=== PATIENT | female | born 1980 | race Caucasian/White ===

== ENCOUNTER 2017-04-17 23:05 | Emergency (ER) | payer BC, MEDICAID ==
[2017-04-18 00:11] LABS: BASO % 0.2 % (0-6); EOS % 3.2 % (0-6); GRAN % 60.7 % (47-80); HEMATOCRIT 40.9 % (35.0-47.0); HEMOGLOBIN 13.7 gm/dl (11.6-16.0); LYMPH % 29.3 % (16-45); MEAN CELL VOLUME 86.5 fl (81-97); MEAN CORPUSCULAR HGB CONC 33.5 g/dl (32-36); MEAN PLATELET VOLUME 10.7 fl (7.4-10.4); MONO % 6.6 % (0-9); PLATELET COUNT 357 K/uL (130-400); RED BLOOD COUNT 4.73 M/uL (3.80-5.40); RED CELL DISTRIBUTION WIDTH 13.4 % (11.5-14.5); WHITE BLOOD COUNT W/O DIFF 12.8 K/uL (4.2-12.2)
[2017-04-18] MEDS ORDERED: MORPHINE SULFATE 5 MG/ML PFS IVP ONE ×2 (00:16→02:05)
[2017-04-18] MEDS ORDERED: ONDANSETRON HCL IV 4 MG/2 ML VIAL IVP ONE (00:17)
--- NOTE | 2017-04-18 00:21 | Emergency Department Record ---
History of Present Illness - General Chief Complaint: Abdominal Pain Stated Complaint: LOWER ABDOMEN PAIN Time Seen by Provider: 04/17/17 23:22 Source: Patient Mode of Arrival: Ambulatory Limitations: No limitations - History of Present Illness Initial Comments: 37 yo female presents to ED with a CC of LLQ pain that began approximately 4-5 hours prior to arrival. Patient denies change in stools, nausea, vomiting, or blood in the stools. Patient does report a previous history of kidney stones, denies flank pain or urinary symptoms. Patient also reports a history of diverticulitis. Patient reports a previous history of ovarian cysts and Bipolar. MD Complaint: Abdominal pain Onset/Timin -: Hour(s) Location: LLQ Radiation: None Severity: Moderate Quality: Sharp, Stabbing Consistency: Constant Improves With: Nothing Worsens With: Movement Associated Symptoms: Denies other symptoms - Related Data LMP Date: 03/29/17 Previous Rx's Medication Instructions Recorded Ciprofloxacin HCl [Cipro] 500 mg PO Q12HR #19 tablet 04/18/17 Hydrocodone/Acetaminophen [[place] 1 each PO Q6H PRN #10 tablet 04/18/17 5-325 Tablet] Metronidazole [Flagyl] 500 mg PO TID #29 tablet 04/18/17 Allergies Allergy/AdvReac Type Severity Reaction Status Date / Time quetiapine [From Seroquel] AdvReac psychosis Verified 04/17/17 23:50 Travel Screening - Travel/Exposure Within Last 30 Days Have you traveled within the last 30 days?: No - Travel Symptoms Symptom Screening: None Review of Systems Constitutional: Denies: Chills, Fever, Malaise, Night sweats Eyes: Denies: Eye discharge, Eye pain ENT: Denies: Congestion, Ear pain, Epistaxis Respiratory: Denies: Cough, Dyspnea Cardiovascular: Denies: Chest pain, Dyspnea on exertion Endocrine: Denies: Fatigue, Heat or cold intolerance Gastrointestinal: Reports: Abdominal pain, Nausea. Denies: Constipation, Vomiting Genitourinary: Denies: Dysuria, Frequency Musculoskeletal: Denies: Arthralgia, Back pain, Gout, Joint swelling Skin: Denies: Bruising, Change in color Neurological: Denies: Abnormal gait, Confusion, Headache, Seizure Psychiatric: Denies: Anxiety Hematological/Lymphatic: Denies: Anemia, Blood Clots Past Medical History - SOCIAL HISTORY Smoking Status: Former smoker - RESPIRATORY Hx Respiratory Disorders: Yes Hx Pulmonary Embolism: Yes - CARDIOVASCULAR Hx Cardio Disorders: Yes Hx Deep Vein Thrombosis: Yes Comment:: PE 2003 - NEURO Hx Neuro Disorders: No - GI Hx GI Disorders: Yes Hx Diverticulitis: Yes - Hx Genitourinary Disorders: Yes Hx UTI: Yes - ENDOCRINE Hx Endocrine Disorders: No - MUSCULOSKELETAL Hx Musculoskeletal Disorders: Yes Hx Arthritis: Yes - PSYCH Hx Psych Problems: Yes Hx Anxiety: Yes Hx Depression: Yes Comment:: ADHD, bipolar manic - HEMATOLOGY/ONCOLOGY Hx Hematology/Oncology Disorders: Yes Hx Clotting Problems: Yes (hx of blood clots in L leg) Family Medical History Any Significant Family History?: Yes Hx Cancer: Father, Mother, Grandparents Hx Diabetes: Father, Mother, Grandparents Hx HTN: Father, Mother, Grandparents Physical Exam - General General Appearance: Alert, Oriented x3, Cooperative, Moderate distress Limitations: No limitations - Head Head exam: Atraumatic, Normocephalic, Normal inspection Head exam detail: negative: Abrasion, Contusion, Ta's sign, General tenderness, Hematoma, Laceration - Eye Eye exam: Normal appearance. negative: Conjunctival injection, Periorbital swelling, Periorbital tenderness, Scleral icterus - ENT Ear exam: negative: Auricular hematoma, Auricular trauma Nasal Exam: negative: Active bleeding, Discharge, Dried blood, Foreign body Mouth exam: negative: Drooling, Laceration, Muffled voice, Tongue elevation - Neck Neck exam: Normal inspection. negative: Meningismus, Tenderness - Respiratory Respiratory exam: Normal lung sounds bilaterally. negative: Rales, Respiratory distress, Rhonchi, Stridor - Cardiovascular Cardiovascular Exam: Regular rate, Normal rhythm, Normal heart sounds - GI/Abdominal GI/Abdominal exam: Soft, Tenderness, Other (TTP to the LLQ with guarding present , no peritoneal signs, no rebound.). negative: Rebound, Rigid - Rectal Rectal exam: Deferred - exam: Deferred - Extremities Extremities exam: negative: Calf tenderness, Pedal edema, Tenderness - Back Back exam: Denies: CVA tenderness (R), CVA tenderness (L) - Neurological Neurological exam: Alert, Normal gait, Oriented X3 - Psychiatric Psychiatric exam: Normal affect, Normal mood - Skin Skin exam: Normal color. negative: Abrasion Type of lesion: negative: abrasion Course Vital Signs 04/17/17 23:52 Temperature 98.1 F Pulse Rate [ 120 H Pulse Ox Probe] Respiratory 32 H Rate Blood Pressure 145/113 [Right Arm] Pulse Ox 97 - Reevaluation(s) Reevaluation #1: 04/18/17 00:45 Labs reviewed, WBC 12.8, labs are otherwise grossly unremarkable for an acute process. Patient is going to CT currently. Reevaluation #2: 04/18/17 02:03 CT Abdomen and Pelvis: Mild sigmoid diverticulitis Patient was updated on all results, Cipro and Flagyl initiated in the ED. Patient appears stable for discharge at this time. Medical Decision Making - Lab Data Result diagrams: 04/18/17 00:02 04/18/17 00:02 Disposition Disposition: Discharge Clinical Impression: Sigmoid diverticulitis Disposition: Home, Self-Care Condition: (2) Stable Instructions: Diverticulitis (ED) Additional Instructions: Return to ED if your symptoms worsen or if you have any concerns. Flagyl, Cipro, and Whipple as directed. Follow-up with your family doctor in 2-3 days as directed. Prescriptions: Ciprofloxacin HCl [Cipro] 500 mg PO Q12HR #19 tablet Hydrocodone/Acetaminophen [[place]ipple 5-325 Tablet] 1 each PO Q6H PRN #10 tablet PRN Reason: Pain - Moderate (5-7) Metronidazole [Flagyl] 500 mg PO TID #29 tablet Forms: Patient Portal Access Time of Disposition: 02:01 Quality - Quality Measures Quality Measures: N/A - Blood Pressure Screening Does Patient Have Any of the Following: No Blood Pressure Classification: Hypertensive Reading Systolic Measurement: 151 Diastolic Measurement: 104 Screening for High Blood Pressure: < First Hypertensive BP, F/U Documented > [ G8950] First Hypertensive Follow-up Interventions: Referral to alternative/primary care provider.
[2017-04-18 00:23] LABS: URINE APPEARANCE CLEAR; URINE BILIRUBIN NEGATIVE (NEGATIVE); URINE BLOOD NEGATIVE (NEGATIVE); URINE COLOR YELLOW; URINE GLUCOSE (UA) NEGATIVE (NEGATIVE); URINE KETONE NEGATIVE (NEGATIVE); URINE LEUKOCYTE ESTERASE NEGATIVE (NEGATIVE); URINE NITRITE NEGATIVE (NEGATIVE); URINE PROTEIN NEGATIVE (NEGATIVE); URINE UROBILINOGEN 0.2 E.U./dL (0.20 - 1.00)
[2017-04-18 00:28] LABS: HCG,QUALITATIVE URINE NEGATIVE (NEGATIVE)
[2017-04-18] MEDS ORDERED: 0.9 % SODIUM CHLORIDE 1000ML 1,000 ML IV SCH (00:30)
[2017-04-18 00:35] LABS: ALB/GLOB RATIO 1.4 (1.1-1.8); ALBUMIN 4.1 g/dL (4.0-5.0); ALKALINE PHOSPHATASE 63 U/L (35-104); ALT/SGPT 12 U/L (<33); AST/SGOT 14 U/L (10.0-35.0); BLOOD UREA NITROGEN 8 mg/dL (6-20); CREATININE 0.7 mg/dL (0.5-0.9); EST GLOMERULAR FILTRATION RATE > 60 mL/min; GLUCOSE,RANDOM 109 mg/dL (74-109); LIPASE 29 U/L (13-60)
[2017-04-18] MEDS ORDERED: CIPROFLOXACIN HCL 500 MG TABLET PO ONE (02:00)
[2017-04-18] MEDS ORDERED: METRONIDAZOLE 250 MG TABLET PO ONE (02:00)
--- NOTE | 2017-04-19 15:57 | CT SCAN REPORT ---
DATE: 04/18/2017 at 1:05 a.m. EXAM: CT SCAN OF THE ABDOMEN AND PELVIS WITH CONTRAST. HISTORY: Left lower quadrant abdominal pain. TECHNIQUE: Standard CT imaging of the abdomen and pelvis was performed with intravenous contrast. A total of 85 mL of Omnipaque 300 was administered. COMPARISON: None. FINDINGS: The lung bases are clear. There are minor areas of fatty infiltration within the liver. The gallbladder, biliary tree, pancreas, spleen , and adrenal glands are normal. A 3.0 mm nonobstructing stone is present within the mid portion of the right kidney. The kidneys and ureters are otherwise normal. The aorta is normal in caliber. There is no retroperitoneal lymphadenopathy. There are scattered diverticula within the sigmoid colon. There is minor inflammatory change within the proximal to mid sigmoid colon region consistent with minor, acute diverticulitis. There is no associated abscess or pneumoperitoneum. There is a small amount of free fluid within the posterior cul de sac. The uterus and adnexa appear normal. There are no acute osseus abnormalities. IMPRESSION: 1. MILD, ACUTE SIGMOID DIVERTICULITIS WITH NO EVIDENCE FOR ABSCESS OR PNEUMOPERITONEUM. 2. TRACE FREE FLUID WITHIN THE POSTERIOR CUL DE SAC WHICH IS LIKELY PHYSIOLOGIC. 3. A 3.0 MM NONOBSTRUCTING STONE WITHIN THE RIGHT KIDNEY. JOB NUMBER: [id number] MTDD
== END 2017-04-18 02:50 | disposition home or self-care (01) ==
LOC: ER 23:05
DX: K57.32 Diverticulitis of large intestine without perforation or abscess without bleeding (principal)
CPT/HCPCS: 99284 ×2; 96376; 96374; 96375; 83690; 85025; 80053; 81003; 81025; 74177; Q9967; J2405; J2270; J7030

== ENCOUNTER 2018-01-26 09:00 | Emergency (ER) | payer BC, MEDICAID ==
[2018-01-26] MEDS ORDERED: KETOROLAC 30 MG/ML VIAL IVP ONE (09:10)
--- NOTE | 2018-01-26 09:15 | Emergency Department Record ---
History of Present Illness - General Stated complaint: ABD PAIN Time Seen by Provider: 01/26/18 09:09 Source: Patient Mode of Arrival: Ambulatory Limitations: No limitations - History of Present Illness Initial comments: 37 yo female presents with lower pelvic pain for 20 days with vaginal bleeding. She passed odd looking clots. She has had a prior tubal ligation. She did not perform a test. No fevers, chills, vomiting, dysuria or diarrhea. No hematuria. She reports a history of ovarian cysts in the past. She has had 2 live births and 2 miscarriages. PCP is Stephanie Kline. She was not able to get an appointment until February 02. She does not see a [employer]. The pain is bilateral but worse on the right. Her vaginal discharge is white for the 20 days. MD Complaint: Pelvic pain, Vaginal bleeding -: Days(s) (20) Location: Suprapubic Radiation: LLQ, RLQ Severity: Moderate Quality: Aching, Cramping Consistency: Constant Improves with: None Worsens with: None Patient : No (History of tubal ligation, ) Associated Symptoms: Abdominal pain, Vaginal bleeding, Vaginal discharge - Related Data Home Medications Medication Instructions Recorded Confirmed Last Taken Diphenhydramine HCl [Benadryl] 100 mg PO QHS 01/26/18 01/26/18 1 Day Ago ~01/25/18 Lisdexamfetamine Dimesylate 40 mg PO DAILY 01/26/18 01/26/18 1 Day Ago [Vyvanse] ~01/25/18 Previous Rx's Medication Instructions Recorded Hydrocodone/APAP 5/325Mg [[place] 1 each PO Q6H #8 tab 01/26/18 5Mg/325Mg] Metronidazole [Flagyl] 500 mg PO Q12H #14 tablet 01/26/18 Allergies Allergy/AdvReac Type Severity Reaction Status Date / Time quetiapine [From Seroquel] AdvReac psychosis Verified 01/26/18 09:22 Review of Systems Constitutional: Denies: Chills, Fever, Malaise, Weakness Eyes: Denies: Eye discharge ENT: Denies: Congestion, Throat pain Respiratory: Denies: Cough, Dyspnea, Hemoptysis, Wheezes Cardiovascular: Denies: Chest pain, Palpitations, Syncope Endocrine: Denies: Fatigue, Polydipsia, Polyuria Gastrointestinal: Reports: Abdominal pain. Denies: Diarrhea, Nausea, Vomiting Genitourinary: Reports: Abnormal menses, Discharge. Denies: Dysuria, Hematuria , Urgency Musculoskeletal: Denies: Arthralgia, Back pain, Neck pain Skin: Denies: Bruising, Change in color, Rash Neurological: Denies: Numbness, Weakness Psychiatric: Denies: Anxiety Hematological/Lymphatic: Denies: Blood Clots, Easy bleeding, Easy bruising, Swollen glands Past Medical History - SOCIAL HISTORY Smoking Status: Former smoker - RESPIRATORY Hx Respiratory Disorders: Yes Hx Pulmonary Embolism: Yes - CARDIOVASCULAR Hx Cardio Disorders: Yes Hx Deep Vein Thrombosis: Yes Comment:: PE 2002 - NEURO Hx Neuro Disorders: No - GI Hx GI Disorders: Yes Hx Diverticulitis: Yes - Hx Genitourinary Disorders: Yes Hx UTI: Yes - ENDOCRINE Hx Endocrine Disorders: No - MUSCULOSKELETAL Hx Musculoskeletal Disorders: Yes Hx Arthritis: Yes - PSYCH Hx Psych Problems: Yes Hx Anxiety: Yes Hx Depression: Yes Comment:: ADHD, bipolar manic - HEMATOLOGY/ONCOLOGY Hx Hematology/Oncology Disorders: Yes Hx Clotting Problems: Yes (hx of blood clots in L leg) Family Medical History Hx Cancer: Father, Mother, Grandparents Hx Diabetes: Father, Mother, Grandparents Hx HTN: Father, Mother, Grandparents Physical Exam - General General Appearance: Alert, Oriented x3, Cooperative, No acute distress Limitations: No limitations - Head Head exam: Atraumatic, Normal inspection - Eye Eye exam: Normal appearance. negative: Conjunctival injection, Scleral icterus - ENT ENT exam: Normal exam, Mucous membranes moist Ear exam: Normal external inspection Nasal Exam: Normal inspection Mouth exam: Normal external inspection - Neck Neck exam: Normal inspection - Respiratory Respiratory exam: Normal lung sounds bilaterally. negative: Respiratory distress - Cardiovascular Cardiovascular Exam: Regular rate, Normal rhythm, Normal heart sounds - GI/Abdominal GI/Abdominal exam: Soft, Tenderness (tender lower abdomen right and left). negative: Distended, Guarding - Rectal Rectal exam: Deferred - exam: Adnexal tenderness (L), Adnexal tenderness (R), Normal external exam, Vaginal discharge. negative: Abnormal external exam, Adnexal mass (L), Adnexal mass (R), Cervical discharge, cervical motion tenderness, Enlarged uterus, Normal bimanual exam (right tender greater than left), Vaginal bleeding - Extremities Extremities exam: Normal inspection - Back Back exam: Denies: CVA tenderness (R), CVA tenderness (L) - Neurological Neurological exam: Alert, Oriented X3 - Psychiatric Psychiatric exam: Normal affect, Normal mood - Skin Skin exam: Dry, Intact, Normal color, Warm Course - Reevaluation(s) Reevaluation #1: 01/26/18 10:05 The CBC was unremarkable The CMP no acute changes The HCG is negative. 01/26/18 10:46 Clue Cells noted on the Wet Prep 01/26/18 12:17 The US is negative She will be treated for BV and follow up with her PCP as scheduled Medical Decision Making - Lab Data Result diagrams: 01/26/18 09:27 01/26/18 09:27 Disposition Disposition: Discharge Clinical Impression: Pelvic pain, Bacterial vaginosis Disposition: Home, Self-Care Condition: (1) Good Instructions: Bacterial Vaginosis (ED), Pelvic Pain (ED) Additional Instructions: Call your doctor for follow up this week Be seen if you have fever, vomiting uncontrolled pain or any new concerns Prescriptions: Hydrocodone/APAP 5/325Mg [[place] 5Mg/325Mg] 1 each PO Q6H #8 tab Metronidazole [Flagyl] 500 mg PO Q12H #14 tablet Forms: Patient Portal Access Time of Disposition: 12:17 Quality - Quality Measures Quality Measures: N/A - Blood Pressure Screening Does Patient Have Any of the Following: Active Dx of HTN Blood Pressure Classification: Hypertensive Reading Systolic Measurement: 146 Diastolic Measurement: 112 Screening for High Blood Pressure: Patient Exclusion, Hx of HTN [G9744]
[2018-01-26 09:33] LABS: BASO % 0.2 % (0-6); EOS % 8.1 % (0-6); GRAN % 64.6 % (47-80); HEMATOCRIT 41.6 % (35.0-47.0); HEMOGLOBIN 13.6 gm/dl (11.6-16.0); LYMPH % 20.5 % (16-45); MEAN CELL VOLUME 89.8 fl (81-97); MEAN CORPUSCULAR HEMOGLOBIN 29.4 pg (27-33); MEAN CORPUSCULAR HGB CONC 32.7 g/dl (32-36); MEAN PLATELET VOLUME 11.3 fl (7.4-10.4); MONO % 6.6 % (0-9); PLATELET COUNT 318 K/uL (130-400); RED BLOOD COUNT 4.63 M/uL (3.80-5.40)
[2018-01-26 09:52] LABS: TOTAL B-hCG < 0.500 mIU/mL
[2018-01-26 09:55] LABS: BILIRUBIN,TOTAL < 0.20 mg/dL (0.2-1.0); BLOOD UREA NITROGEN 12 mg/dL (6-20); CREATININE 0.6 mg/dL (0.5-0.9); EST GLOMERULAR FILTRATION RATE > 60 mL/min
[2018-01-26 09:56] LABS: TOTAL PROTEIN 6.1 g/dL (6.6-8.7)
[2018-01-26 09:58] LABS: GLUCOSE,RANDOM 93 mg/dL (74-109)
[2018-01-26 10:00] LABS: ALB/GLOB RATIO 1.4 (1.1-1.8); ALBUMIN 3.6 g/dL (4.0-5.0); ALT/SGPT 10 U/L (<33); AST/SGOT 15 U/L (10.0-35.0)
[2018-01-26 10:01] LABS: ALKALINE PHOSPHATASE 62 U/L (35-104)
[2018-01-26] MEDS ORDERED: HYDROCODONE/APAP 7.5/325MG TABLET PO ONE (10:08)
[2018-01-26] MEDS ORDERED: METRONIDAZOLE 250 MG TABLET PO ONE (11:11)
[2018-01-27 16:02] LABS: GC SPECIMEN TYPE Vaginal
--- NOTE | 2018-01-28 10:09 | ULTRASOUND REPORT ---
EXAM: PELVIC ULTRASOUND HISTORY: PELVIC PAIN. TECHNIQUE: Transvaginal and transabdominal sonographic evaluation of the pelvis was performed using dumont scale imaging with the addition of color flow Doppler and spectral analysis. FINDINGS: TRANSABDOMINAL PELVIC ULTRASOUND: The uterus is normal in size. The endometrial stripe measures 12 mm. There are small nabothian cysts in the lower uterine segment. The right ovary measures 4.1 x 2.0 x 1.9 cm. The left ovary measures 3.0 x 2.0 x 2.5 cm. There is normal arterial and venous flow to both ovaries. There is normal follicular change. TRANSVAGINAL PELVIC ULTRASOUND: The uterus is normal in size. The endometrial stripe measures 12 mm. The ovaries are normal in size. There is normal follicular change. There is normal arterial and venous flow. IMPRESSION: UNREMARKABLE PELVIC SONOGRAM. JOB NUMBER: [id number] MTDD
== END 2018-01-26 12:33 | disposition home or self-care (01) ==
LOC: ER 09:00
DX: N76.0 Acute vaginitis (principal); R10.2 Pelvic and perineal pain; Z87.891 Personal history of nicotine dependence
CPT/HCPCS: 99284 ×2; 96374; 85025; 84702; 80053; 76856; 76830; Q0111; J1885; 87210

== ENCOUNTER 2018-05-30 10:03 | Emergency (ER) | payer BC, MEDICAID ==
[2018-05-30] MEDS ORDERED: DIPHENHYDRAMINE HCL 50 MG/ML VIAL IM ONE (10:19)
--- NOTE | 2018-05-30 10:20 | Emergency Department Record ---
History of Present Illness - General Chief complaint: Extremity Problem Stated complaint: L ARM TREMORS Time Seen by Provider: 05/30/18 10:06 Source: Patient, RN notes reviewed Mode of Arrival: Ambulatory - History of Present Illness Initial comments: patient presents with severe tremor in both hands and in her legs and the tremor is much worse today and she is on lithium 900 mg twice a day and she has been on this level of medication for 2 months and she was on 600 mg twice a day prior to that. Patient denies taking any extra medication and she also has a history of hypertension,Bipolar,psychosis and two suicide attempts last one 2013 and she states no suicide attempts now. Onset/Timin -: Hour(s) Location: Left, Arm History of Same: No Radiation: None Consistency: Constant Improves with: Nothing Worsens with: Nothing Associated Symptoms: Denies other symptoms - Related Data Previous Rx's Medication Instructions Recorded Hydroxyzine Pamoate [Vistaril] 25 mg PO Q6H #20 capsule 05/30/18 Allergies Allergy/AdvReac Type Severity Reaction Status Date / Time metoprolol tartrate AdvReac Intermediate blood Verified 05/30/18 10:10 [From Lopressor] pressure bottomed out oxcarbazepine AdvReac Intermediate lifting Verified 05/30/18 10:10 [From Trileptal] head made her dizzy quetiapine [From Seroquel] AdvReac psychosis Verified 05/30/18 10:10 Travel Screening - Travel/Exposure Within Last 30 Days Have you traveled within the last 30 days?: No Review of Systems Reviewed: No additional complaints except as noted below Constitutional: Reports: As per HPI. Denies: Chills, Fever, Malaise, Night sweats, Weakness, Weight change Eyes: Reports: As per HPI. Denies: Eye discharge, Eye pain, Photophobia, Vision change ENT: Reports: As per HPI. Denies: Congestion, Dental pain, Ear pain, Epistaxis , Hearing loss, Throat pain Respiratory: Reports: As per HPI. Denies: Cough, Dyspnea, Hemoptysis, Stridor, Wheezes Cardiovascular: Reports: As per HPI. Denies: Arrhythmia, Chest pain, Dyspnea on exertion, Edema, Murmurs, Orthopnea, Palpitations, Paroxysmal nocturnal dyspnea, Rheumatic Fever, Syncope Endocrine: Reports: As per HPI. Denies: Fatigue, Heat or cold intolerance, Polydipsia, Polyuria Gastrointestinal: Reports: As per HPI. Denies: Abdominal pain, Constipation, Diarrhea, Hematemesis, Hematochezia, Melena, Nausea, Vomiting Genitourinary: Reports: As per HPI. Denies: Abnormal menses, Discharge, Dyspareunia, Dysuria, Frequency, Hematuria, Incontinence, Retention, Urgency Musculoskeletal: Reports: As per HPI. Denies: Arthralgia, Back pain, Gout, Joint swelling, Myalgia, Neck pain Skin: Reports: As per HPI. Denies: Bruising, Change in color, Change in hair/ nails, Lesions, Pruritus, Rash Neurological: Reports: As per HPI, Tremors. Denies: Abnormal gait, Confusion, Headache, Numbness, Paresthesias, Seizure, Tingling, Vertigo, Weakness Psychiatric: Reports: As per HPI. Denies: Anxiety, Auditory hallucinations, Depression, Homicidal thoughts, Suicidal thoughts, Visual hallucinations Hematological/Lymphatic: Reports: As per HPI. Denies: Anemia, Blood Clots, Easy bleeding, Easy bruising, Swollen glands Past Medical History - SOCIAL HISTORY Smoking Status: Former smoker - RESPIRATORY Hx Respiratory Disorders: Yes Hx Pulmonary Embolism: Yes - CARDIOVASCULAR Hx Cardio Disorders: Yes Hx Deep Vein Thrombosis: Yes Comment:: PE 2002 - NEURO Hx Neuro Disorders: No - GI Hx GI Disorders: Yes Hx Diverticulitis: Yes - Hx Genitourinary Disorders: Yes Hx UTI: Yes - ENDOCRINE Hx Endocrine Disorders: No - MUSCULOSKELETAL Hx Musculoskeletal Disorders: Yes Hx Arthritis: Yes - PSYCH Hx Psych Problems: Yes Hx Anxiety: Yes Hx Depression: Yes Comment:: ADHD, bipolar manic - HEMATOLOGY/ONCOLOGY Hx Hematology/Oncology Disorders: Yes Hx Clotting Problems: Yes (hx of blood clots in L leg) Family Medical History Any Significant Family History?: Yes Hx Cancer: Father, Mother, Grandparents Hx Diabetes: Father, Mother, Grandparents Hx HTN: Father, Mother, Grandparents Physical Exam - General General Appearance: Alert, Oriented x3, Cooperative, Mild distress - Head Head exam: Normal inspection - Eye Eye exam: Normal appearance, PERRL Pupils: Normal accommodation - ENT ENT exam: Normal exam, Mucous membranes moist, Normal external ear exam, Normal orophraynx, TM's normal bilaterally Ear exam: Normal external inspection. negative: External canal tenderness Nasal Exam: Normal inspection. negative: Discharge, Sinus tenderness Mouth exam: Normal external inspection, Tongue normal Teeth exam: Normal inspection. negative: Dental caries Throat exam: Normal inspection. negative: Tonsillar erythema, Tonsillar exudate - Neck Neck exam: Normal inspection, Full ROM. negative: Tenderness - Respiratory Respiratory exam: Normal lung sounds bilaterally. negative: Respiratory distress - Cardiovascular Cardiovascular Exam: Regular rate, Normal rhythm, Normal heart sounds - GI/Abdominal GI/Abdominal exam: Soft, Normal bowel sounds. negative: Tenderness - Rectal Rectal exam: Deferred - exam: Deferred - Extremities Extremities exam: Normal inspection, Full ROM, Normal capillary refill. negative: Tenderness - Back Back exam: Reports: Normal inspection, Full ROM. Denies: Muscle spasm, Rash noted, Tenderness - Neurological Neurological exam: Alert, Normal gait, Oriented X3, Reflexes normal, Other ( bilateral tremor worse on the left side) - Psychiatric Psychiatric exam: Normal affect, Normal mood - Skin Skin exam: Dry, Intact, Normal color, Warm Course Vital Signs 05/30/18 10:07 Temperature 98.4 F Pulse Rate 142 H Respiratory 20 Rate Blood Pressure 182/137 Pulse Ox 100 - Reevaluation(s) Reevaluation #1: patient is resting and lithium level is low and will discharge her to follow up with her family and her psychiatrist to review her meds and will give her a script for vistaril which can help her tremor. 05/30/18 14:16 Medical Decision Making - Data Complexity MDM Data: Labs Ordered and/or Reviewed (Drasco level is low), EKG Ordered and/ or Reviewed (NSR ,no acute changes) - Lab Data Result diagrams: 05/30/18 10:25 05/30/18 10:25 Disposition Clinical Impression: Tremor Disposition: Home, Self-Care Condition: (1) Good Instructions: Tremors (ED) Additional Instructions: follow up with family in 3 days Prescriptions: Hydroxyzine Pamoate [Vistaril] 25 mg PO Q6H #20 capsule Forms: Patient Portal Access Time of Disposition: 14:10 Quality - Quality Measures Quality Measures: N/A - Blood Pressure Screening Does Patient Have Any of the Following: No Blood Pressure Classification: Hypertensive Reading Systolic Measurement: 182 Diastolic Measurement: 137 Screening for High Blood Pressure: < First Hypertensive BP, F/U Documented > [ G8950] First Hypertensive Follow-up Interventions: Referral to alternative/primary care provider.
[2018-05-30 10:36] LABS: BASO % 0.3 % (0-6); EOS % 5.8 % (0-6); GRAN % 69.3 % (47-80); LYMPH % 19.5 % (16-45); MEAN CELL VOLUME 90.7 fl (81-97); MEAN CORPUSCULAR HEMOGLOBIN 29.5 pg (27-33); MEAN CORPUSCULAR HGB CONC 32.6 g/dl (32-36); MEAN PLATELET VOLUME 10.2 fl (7.4-10.4); MONO % 5.1 % (0-9); PLATELET COUNT 418 K/uL (130-400); RED BLOOD COUNT 4.74 M/uL (3.80-5.40); RED CELL DISTRIBUTION WIDTH 14.3 % (11.5-14.5); WHITE BLOOD COUNT W/O DIFF 11.7 K/uL (4.2-12.2)
[2018-05-30] MEDS ORDERED: 0.9 % SODIUM CHLORIDE 1000ML 1,000 ML IV ONE (10:38)
[2018-05-30 10:43] LABS: BLOOD UREA NITROGEN 11 mg/dL (6-20)
[2018-05-30 10:44] LABS: CREATININE 0.8 mg/dL (0.5-0.9); EST GLOMERULAR FILTRATION RATE > 60 mL/min
[2018-05-30 10:46] LABS: GLUCOSE,RANDOM 109 mg/dL (74-109)
[2018-05-30 11:25] LABS: ALBUMIN 4.6 g/dL (4.0-5.0); ALKALINE PHOSPHATASE 71 U/L (35-104); ALT/SGPT 15 U/L (<33); AST/SGOT 15 U/L (10.0-35.0); TOTAL PROTEIN 7.6 g/dL (6.6-8.7)
[2018-05-30 11:26] LABS: BILIRUBIN,DIRECT < 0.2 mg/dL (0-0.3)
[2018-05-30 11:27] LABS: ACETAMINOPHEN < 5.0 ug/mL (10.0-30.0); SALICYLATE < 0.3 mg/dL (2.8-20)
== END 2018-05-30 14:38 | disposition home or self-care (01) ==
LOC: ER 10:03
DX: R25.1 Tremor, unspecified (principal); R78.89 Finding of other specified substances, not normally found in blood; F31.89 Other bipolar disorder; F90.9 Attention-deficit hyperactivity disorder, unspecified type; Z86.718 Personal history of other venous thrombosis and embolism; Z87.891 Personal history of nicotine dependence
CPT/HCPCS: 99284 ×2; 96360; 96372; 83735; 85025; 80076; 80048; 84443; 93005; 93010; G0480 ×2; 80329; 96361; J1200

== ENCOUNTER 2018-07-28 05:14 | Emergency (ER) | payer BC, MEDICAID ==
[2018-07-28] MEDS ORDERED: FUROSEMIDE 20 MG TABLET PO ONE (05:35)
--- NOTE | 2018-07-28 05:36 | Emergency Department Record ---
History of Present Illness - General Chief complaint: Edema Stated complaint: EDEMA Time Seen by Provider: 07/28/18 05:25 Source: Patient Mode of Arrival: Ambulatory - History of Present Illness Initial comments: The patient states that she feels like she is bloating all over her body such as her arms, legs, and lungs. Even her head hurts. She notice this began about 4 hours ago. She used to be taking Wellbutryn but began to swell up, so her doctor stopped it nd the swelling went away. She currently is taking blood pressure meds and lithium. Onset/Timin -: Hour(s) - Related Data Home Medications Medication Instructions Recorded Confirmed Last Taken [place] Carbonate [[place] 600 mg PO DAILY 07/28/18 07/28/18 Unknown Carbonate ER] Allergies Allergy/AdvReac Type Severity Reaction Status Date / Time bupropion [From Wellbutrin] Allergy gain water Verified 07/28/18 05:19 weight metoprolol tartrate AdvReac Intermediate blood Verified 07/28/18 05:19 [From Lopressor] pressure bottomed out oxcarbazepine AdvReac Intermediate lifting Verified 07/28/18 05:19 [From Trileptal] head made her dizzy quetiapine [From Seroquel] AdvReac psychosis Verified 07/28/18 05:19 Travel Screening - Travel/Exposure Within Last 30 Days Have you traveled within the last 30 days?: No - Travel Symptoms Symptom Screening: None Review of Systems Reviewed: No additional complaints except as noted below Constitutional: Reports: As per HPI. Denies: Chills, Fever, Malaise, Night sweats, Weakness, Weight change Eyes: Reports: As per HPI. Denies: Eye discharge, Eye pain, Photophobia, Vision change ENT: Reports: As per HPI. Denies: Congestion, Dental pain, Ear pain, Epistaxis , Hearing loss, Throat pain Respiratory: Reports: As per HPI. Denies: Cough, Dyspnea, Hemoptysis, Stridor, Wheezes Cardiovascular: Reports: As per HPI. Denies: Arrhythmia, Chest pain, Dyspnea on exertion, Edema, Murmurs, Orthopnea, Palpitations, Paroxysmal nocturnal dyspnea, Rheumatic Fever, Syncope Endocrine: Reports: As per HPI. Denies: Fatigue, Heat or cold intolerance, Polydipsia, Polyuria Gastrointestinal: Reports: As per HPI. Denies: Abdominal pain, Constipation, Diarrhea, Hematemesis, Hematochezia, Melena, Nausea, Vomiting Genitourinary: Reports: As per HPI. Denies: Abnormal menses, Discharge, Dyspareunia, Dysuria, Frequency, Hematuria, Incontinence, Retention, Urgency Musculoskeletal: Reports: As per HPI. Denies: Arthralgia, Back pain, Gout, Joint swelling, Myalgia, Neck pain Skin: Reports: As per HPI. Denies: Bruising, Change in color, Change in hair/ nails, Lesions, Pruritus, Rash Neurological: Reports: As per HPI. Denies: Abnormal gait, Confusion, Headache, Numbness, Paresthesias, Seizure, Tingling, Tremors, Vertigo, Weakness Psychiatric: Reports: As per HPI. Denies: Anxiety, Auditory hallucinations, Depression, Homicidal thoughts, Suicidal thoughts, Visual hallucinations Hematological/Lymphatic: Reports: As per HPI. Denies: Anemia, Blood Clots, Easy bleeding, Easy bruising, Swollen glands Past Medical History - SOCIAL HISTORY Smoking Status: Former smoker - RESPIRATORY Hx Respiratory Disorders: Yes Hx Pulmonary Embolism: Yes - CARDIOVASCULAR Hx Cardio Disorders: Yes Hx Deep Vein Thrombosis: Yes Hx Hypertension: Yes Comment:: PE 2002 - NEURO Hx Neuro Disorders: No - GI Hx GI Disorders: Yes Hx Diverticulitis: Yes - Hx Genitourinary Disorders: Yes Hx Kidney Stones: Yes Hx UTI: Yes (" kidney infection") - ENDOCRINE Hx Endocrine Disorders: No - MUSCULOSKELETAL Hx Musculoskeletal Disorders: Yes Hx Arthritis: Yes - PSYCH Hx Psych Problems: Yes Hx Anxiety: Yes Hx Depression: Yes Comment:: ADHD, bipolar manic - HEMATOLOGY/ONCOLOGY Hx Hematology/Oncology Disorders: Yes Hx Clotting Problems: Yes (hx of blood clots in L leg) Family Medical History Any Significant Family History?: Yes Hx Cancer: Father, Mother, Grandparents Hx Diabetes: Father, Mother, Grandparents Hx HTN: Father, Mother, Grandparents Physical Exam - General General Appearance: Alert, Oriented x3, Cooperative, No acute distress - Head Head exam: Normal inspection - Eye Eye exam: Normal appearance, PERRL Pupils: Normal accommodation - ENT ENT exam: Normal exam, Mucous membranes moist, Normal external ear exam, Normal orophraynx, TM's normal bilaterally Ear exam: Normal external inspection. negative: External canal tenderness Nasal Exam: Normal inspection. negative: Discharge, Sinus tenderness Mouth exam: Normal external inspection, Tongue normal Teeth exam: Normal inspection. negative: Dental caries Throat exam: Normal inspection. negative: Tonsillar erythema, Tonsillar exudate - Neck Neck exam: Normal inspection, Full ROM. negative: Tenderness - Respiratory Respiratory exam: Normal lung sounds bilaterally. negative: Respiratory distress - Cardiovascular Cardiovascular Exam: Regular rate, Normal rhythm, Normal heart sounds - GI/Abdominal GI/Abdominal exam: Soft, Normal bowel sounds. negative: Tenderness - Rectal Rectal exam: Deferred - exam: Deferred - Extremities Extremities exam: Normal inspection, Full ROM, Normal capillary refill, Pedal edema (bilteral +1 pitting edema to both lower legs ). negative: Calf tenderness, Tenderness - Back Back exam: Reports: Normal inspection, Full ROM. Denies: Muscle spasm, Rash noted, Tenderness - Neurological Neurological exam: Alert, Normal gait, Oriented X3, Reflexes normal - Psychiatric Psychiatric exam: Normal affect, Normal mood - Skin Skin exam: Dry, Intact, Normal color, Warm Course Vital Signs 07/28/18 05:19 Temperature 97.6 F Pulse Rate [ 78 Pulse Ox Probe] Respiratory 28 H Rate Blood Pressure 143/94 [Left Arm] Pulse Ox 100 - Reevaluation(s) Reevaluation #1: 07/28/18 06:51 Repeat BP is 116/69. Patient states she feels less bloated in her head and chest. She was instructed to follow up with her PCP in the office. She just finished a 15 hours work shift and is to to home, take her meds as before and follow with her PCP. Patient understands and agrees. Medical Decision Making - Management Options MDM Management: No Additional Work-up Planned - Data Complexity MDM Data: Labs Ordered and/or Reviewed - Lab Data Result diagrams: 07/28/18 05:54 07/28/18 05:54 Disposition Disposition: Discharge Clinical Impression: Edema Qualifiers: Edema type: generalized Qualified Code(s): R60.1 - Generalized edema Hypertension Qualifiers: Hypertension type: essential hypertension Qualified Code(s): I10 - Essential ( primary) hypertension Disposition: Home, Self-Care Condition: (1) Good Instructions: Leg Edema (ED), Hypertension (ED) Additional Instructions: Continue present medications. Follow up with PCP for further maintenance of blood pressure and edema. Tylenol alternated with ibuprofen for aches, pains, headache. Quality - Quality Measures Quality Measures: N/A - Blood Pressure Screening Does Patient Have Any of the Following: No Blood Pressure Classification: Normal BP Reading Systolic Measurement: 116 Diastolic Measurement: 69 Screening for High Blood Pressure: Patient Exclusion, Hx of HTN [[id number]]
[2018-07-28 06:05] LABS: URINE APPEARANCE CLEAR; URINE BILIRUBIN NEGATIVE (NEGATIVE); URINE BLOOD TRACE-I (NEGATIVE); URINE COLOR YELLOW; URINE GLUCOSE (UA) NEGATIVE (NEGATIVE); URINE KETONE NEGATIVE (NEGATIVE); URINE LEUKOCYTE ESTERASE NEGATIVE (NEGATIVE); URINE NITRITE NEGATIVE (NEGATIVE); URINE PROTEIN NEGATIVE (NEGATIVE); URINE UROBILINOGEN 0.2 E.U./dL (0.20 - 1.00)
[2018-07-28 06:05] LABS: BASO % 0.3 % (0-6); EOS % 7.8 % (0-6); GRAN % 56.5 % (47-80); HEMATOCRIT 38.7 % (35.0-47.0); HEMOGLOBIN 12.5 gm/dl (11.6-16.0); LYMPH % 28.9 % (16-45); MEAN CELL VOLUME 90.8 fl (81-97); MEAN CORPUSCULAR HEMOGLOBIN 29.3 pg (27-33); MEAN CORPUSCULAR HGB CONC 32.3 g/dl (32-36); MEAN PLATELET VOLUME 10.2 fl (7.4-10.4); MONO % 6.5 % (0-9); PLATELET COUNT 334 K/uL (130-400); RED BLOOD COUNT 4.26 M/uL (3.80-5.40); RED CELL DISTRIBUTION WIDTH 13.4 % (11.5-14.5)
[2018-07-28 06:18] LABS: BILIRUBIN,TOTAL < 0.20 mg/dL (0.2-1.0); BLOOD UREA NITROGEN 8 mg/dL (6-20); CREATININE 0.7 mg/dL (0.5-0.9); EST GLOMERULAR FILTRATION RATE > 60 mL/min
[2018-07-28 06:21] LABS: GLUCOSE,RANDOM 95 mg/dL (74-109)
[2018-07-28 06:23] LABS: ALB/GLOB RATIO 1.3 (1.1-1.8); ALT/SGPT 12 U/L (<33); AST/SGOT 17 U/L (10.0-35.0)
[2018-07-28 06:24] LABS: ALKALINE PHOSPHATASE 64 U/L (35-104)
[2018-07-28 06:35] LABS: THYROID STIMULATING HORMONE 4.21 uIU/mL (0.270-4.20)
== END 2018-07-28 07:05 | disposition home or self-care (01) ==
LOC: ER 05:14
DX: R60.1 Generalized edema (principal); I10 Essential (primary) hypertension; Z87.891 Personal history of nicotine dependence; Z86.718 Personal history of other venous thrombosis and embolism
CPT/HCPCS: 80053; 81003; 83880; 84443; 84484; 85025; 93005; 93010; 99284

== ENCOUNTER 2019-02-28 10:23 | Emergency (ER) | payer BC, MEDICAID ==
--- NOTE | 2019-02-28 11:14 | Emergency Department Record ---
History of Present Illness - General Chief Complaint: Hallucinations Stated Complaint: HALLUCINATING Time Seen by Provider: 02/28/19 10:38 Source: Patient, Family Mode of Arrival: Ambulatory Limitations: No limitations Travel/Exposure to [place] Within 21 Days of Symptoms: No - History of Present Illness Initial Comments: pt is bipolar and has had recent med changes. she has been hallucinating for a week and has been having suicidal thoughts. she comes from the clinic for medical clearance to be transferred to [facility] Complaint: Altered mental status, Suicidal ideation Associated Psychiatric Symptoms: Visual hallucinations Quality: Intermittent Improves With: None Worsens With: None Context: New medication(s) Associated Symptoms: Headache, Insomnia Treatments Prior to Arrival: None - [place] Coma Scale Eye Response: (4) Open spontaneously Motor Response: (6) Obeys commands Verbal Response: (5) Oriented Janeth Total: 15 - Related Data Home Medications Medication Instructions Recorded Confirmed Last Taken Diphenhydramine HCl [Benadryl] 50 mg PO QHS 02/28/19 02/28/19 Unknown Allergies Allergy/AdvReac Type Severity Reaction Status Date / Time fluoxetine HCl [From Prozac] AdvReac Severe aggressive Unverified 02/23/19 11:34 behavior spironolactone AdvReac Severe hallucinations, Unverified 02/23/19 11:34 cough, very low blood pressure amlodipine besylate AdvReac Intermediate patient Unverified 02/23/19 11:34 [From Norvasc] does not recall hydrochlorothiazide AdvReac Intermediate did not Unverified 02/23/19 11:34 help lower blood pressure and increased tremors metoprolol tartrate AdvReac Intermediate blood Unverified 02/23/19 11:34 [From Lopressor] pressure bottomed out oxcarbazepine AdvReac Intermediate lifting Unverified 02/23/19 11:34 [From Trileptal] head made her dizzy paroxetine HCl [From Paxil] AdvReac Intermediate anger and Unverified 02/28/19 10:52 aggression bupropion [From Wellbutrin] AdvReac gain water Unverified 02/28/19 10:52 weight quetiapine [From Seroquel] AdvReac psychosis Unverified 02/23/19 11:34 Review of Systems Reviewed: No additional complaints except as noted below Constitutional: Reports: As per HPI. Denies: Chills, Fever, Malaise, Night sweats, Weakness, Weight change Eyes: Reports: As per HPI. Denies: Eye discharge, Eye pain, Photophobia, Vision change ENT: Reports: As per HPI. Denies: Congestion, Dental pain, Ear pain, Epistaxis, Hearing loss, Throat pain Respiratory: Reports: As per HPI. Denies: Cough, Dyspnea, Hemoptysis, Stridor, Wheezes Cardiovascular: Reports: As per HPI. Denies: Arrhythmia, Chest pain, Dyspnea on exertion, Edema, Murmurs, Orthopnea, Palpitations, Paroxysmal nocturnal dyspnea, Rheumatic Fever, Syncope Endocrine: Reports: As per HPI. Denies: Fatigue, Heat or cold intolerance, Polydipsia, Polyuria Gastrointestinal: Reports: As per HPI. Denies: Abdominal pain, Constipation, Diarrhea, Hematemesis, Hematochezia, Melena, Nausea, Vomiting Genitourinary: Reports: As per HPI. Denies: Abnormal menses, Discharge, Dyspareunia, Dysuria, Frequency, Hematuria, Incontinence, Retention, Urgency Musculoskeletal: Reports: As per HPI. Denies: Arthralgia, Back pain, Gout, Joint swelling, Myalgia, Neck pain Skin: Reports: As per HPI. Denies: Bruising, Change in color, Change in hair/nails, Lesions, Pruritus, Rash Neurological: Reports: As per HPI. Denies: Abnormal gait, Confusion, Headache, Numbness, Paresthesias, Seizure, Tingling, Tremors, Vertigo, Weakness Psychiatric: Reports: As per HPI. Denies: Anxiety, Auditory hallucinations, Depression, Homicidal thoughts, Suicidal thoughts, Visual hallucinations Hematological/Lymphatic: Reports: As per HPI. Denies: Anemia, Blood Clots, Easy bleeding, Easy bruising, Swollen glands Past Medical History - SOCIAL HISTORY Smoking Status: Former smoker Alcohol Use: None Drug Use: None - RESPIRATORY Hx Respiratory Disorders: Yes Hx Pulmonary Embolism: Yes - CARDIOVASCULAR Hx Cardio Disorders: Yes Hx Deep Vein Thrombosis: Yes Hx Hypertension: Yes Comment:: PE 2002 - NEURO Hx Neuro Disorders: Yes Hx Headaches: Yes - GI Hx GI Disorders: Yes Hx Diverticulitis: Yes - Hx Genitourinary Disorders: Yes Hx Kidney Stones: Yes Hx UTI: Yes (" kidney infection") - ENDOCRINE Hx Endocrine Disorders: No - MUSCULOSKELETAL Hx Musculoskeletal Disorders: Yes Hx Arthritis: Yes - PSYCH Hx Psych Problems: Yes Hx Anxiety: Yes Hx Depression: Yes Comment:: ADHD, bipolar manic - HEMATOLOGY/ONCOLOGY Hx Hematology/Oncology Disorders: Yes Hx Clotting Problems: Yes (hx of blood clots in L leg) Family Medical History Any Significant Family History?: Yes Hx Cancer: Father, Mother, Grandparents Hx Diabetes: Father, Mother, Grandparents Hx HTN: Father, Mother, Grandparents Physical Exam - General General Appearance: Alert, Oriented x3, Cooperative, Mild distress - Head Head exam: Normal inspection - Eye Eye exam: Normal appearance, PERRL, EOMI Pupils: Normal accommodation - ENT ENT exam: Normal exam, Mucous membranes moist, Normal external ear exam, Normal orophraynx Ear exam: Normal external inspection. negative: External canal tenderness Nasal Exam: Normal inspection. negative: Discharge, Sinus tenderness Mouth exam: Normal external inspection, Tongue normal Teeth exam: Normal inspection. negative: Dental caries Throat exam: Normal inspection. negative: Tonsillar erythema, Tonsillar exudate - Neck Neck exam: Normal inspection, Full ROM. negative: Tenderness - Respiratory Respiratory exam: Normal lung sounds bilaterally. negative: Respiratory distress - Cardiovascular Cardiovascular Exam: Regular rate, Normal rhythm, Normal heart sounds - GI/Abdominal GI/Abdominal exam: Soft, Normal bowel sounds. negative: Tenderness - Rectal Rectal exam: Deferred - exam: Deferred - Extremities Extremities exam: Normal inspection, Full ROM, Normal capillary refill. negative: Tenderness - Back Back exam: Reports: Normal inspection, Full ROM. Denies: Muscle spasm, Rash noted, Tenderness - Neurological Neurological exam: Alert, CN II-XII intact, Normal gait, Oriented X3 - Psychiatric Psychiatric exam: Anxious, Normal mood, Suicidal ideation - Skin Skin exam: Dry, Intact, Normal color, Warm Course Vital Signs 02/28/19 10:54 Temperature 99.1 F Pulse Rate 93 H Respiratory 20 Rate Blood Pressure 147/86 Pulse Ox 96 Medical Decision Making - Lab Data Result diagrams: 02/28/19 11:15 02/28/19 11:15 Disposition Disposition: Transfer Clinical Impression: Hallucinations, Suicidal ideation Disposition: [facility] Transfer To: [facility] Reason For Transfer: hallucinations, suicidal ideation Accepting Physician: psych Time Discussed w/Accepting Physician: 12:41 Forms: Patient Portal Access Quality - Quality Measures Quality Measures: N/A - Blood Pressure Screening Does Patient Have Any of the Following: No Blood Pressure Classification: Pre-Hypertensive BP Reading Systolic Measurement: 147 Diastolic Measurement: 86 Screening for High Blood Pressure: < Pre-Hypertensive BP, F/U Documented > [G8950] Pre-Hypertensive Follow-up Interventions: Follow-up with rescreen every year.
[2019-02-28 11:28] LABS: URINE APPEARANCE CLEAR; URINE BILIRUBIN NEGATIVE (NEGATIVE); URINE BLOOD SMALL (NEGATIVE); URINE COLOR YELLOW; URINE GLUCOSE (UA) NEGATIVE (NEGATIVE); URINE KETONE NEGATIVE (NEGATIVE); URINE LEUKOCYTE ESTERASE NEGATIVE (NEGATIVE); URINE NITRITE NEGATIVE (NEGATIVE); URINE PROTEIN NEGATIVE (NEGATIVE); URINE UROBILINOGEN 0.2 E.U./dL (0.20 - 1.00)
[2019-02-28 11:30] LABS: ABSOLUTE NEUTROPHIL COUNT 7.99; BASO % 0.4 % (0-6); EOS % 5.3 % (0-6); HEMATOCRIT 42.3 % (35.0-47.0); HEMOGLOBIN 13.7 gm/dl (11.6-16.0); LYMPH % 22.6 % (16-45); MEAN CELL VOLUME 90.8 fl (81-97); MEAN CORPUSCULAR HEMOGLOBIN 29.4 pg (27-33); MEAN CORPUSCULAR HGB CONC 32.4 g/dl (32-36); MEAN PLATELET VOLUME 10.2 fl (7.4-10.4); MONO % 5.7 % (0-9); PLATELET COUNT 424 K/uL (130-400); RED BLOOD COUNT 4.66 M/uL (3.80-5.40); RED CELL DISTRIBUTION WIDTH 14.4 % (11.5-14.5); WHITE BLOOD COUNT W/O DIFF 12.1 K/uL (4.2-12.2)
[2019-02-28 11:38] LABS: HCG,QUALITATIVE URINE NEGATIVE (NEGATIVE); URINE MUCUS LIGHT; URINE WBC NONE SEEN (0-2/hpf)
[2019-02-28 11:51] LABS: BLOOD UREA NITROGEN 11 mg/dL (6-20); CREATININE 0.7 mg/dL (0.5-0.9); EST GLOMERULAR FILTRATION RATE > 60 mL/min
[2019-02-28 11:52] LABS: TOTAL PROTEIN 6.8 g/dL (6.6-8.7)
[2019-02-28 11:54] LABS: GLUCOSE,RANDOM 107 mg/dL (74-109)
[2019-02-28 11:57] LABS: ALB/GLOB RATIO 1.6 (1.1-1.8); ALBUMIN 4.2 g/dL (4.0-5.0); ALKALINE PHOSPHATASE 67 U/L (35-104); ALT/SGPT 11 U/L (<33); AST/SGOT 13 U/L (10.0-35.0)
[2019-02-28 12:07] LABS: THYROID STIMULATING HORMONE 1.68 uIU/mL (0.270-4.20)
[2019-02-28 12:24] LABS: AMPHETAMINE SCREEN URINE NOT DETECTED; BARBITURATE SCREEN URINE NOT DETECTED; BENZODIAZEPINE SCREEN URINE NOT DETECTED; COCAINE SCREEN URINE NOT DETECTED; METHADONE SCREEN URINE NOT DETECTED; OPIATE SCREEN URINE NOT DETECTED; THC SCREEN URINE NOT DETECTED; TRICYCLIC ANTIDEPRESSANT SCRN NOT DETECTED
[2019-02-28 12:25] LABS: METHAMPHETAMINE SCREEN NOT DETECTED; OXYCODONE SCREEN URINE NOT DETECTED; PHENCYCLIDINE SCREEN URINE DETECTED; PROPOXYPHENE SCREEN URINE NOT DETECTED
[2019-02-28] MEDS ORDERED: KETOROLAC 30 MG/ML VIAL IM ONE (15:14)
== END 2019-02-28 17:41 ==
LOC: ER 10:23
DX: R45.851 Suicidal ideations (principal); R44.0 Auditory hallucinations; R44.1 Visual hallucinations; F31.9 Bipolar disorder, unspecified; I10 Essential (primary) hypertension; Z87.891 Personal history of nicotine dependence
CPT/HCPCS: 80053; 80305; 80320; 81001; 81025; 84443; 85025; 96372; 99285; J1885

== ENCOUNTER 2019-03-07 05:16 | Emergency (ER) | payer BC, MEDICAID ==
--- NOTE | 2019-03-07 05:33 | Emergency Department Record ---
History of Present Illness - General Chief complaint: Allergic Reaction Stated complaint: MED REACTION Time Seen by Provider: 03/07/19 05:31 Source: Patient Mode of Arrival: Ambulatory Limitations: No limitations - History of Present Illness Initial Comments: 38 yo female presents to ED for evaluation of "swelling to my fingers and my ankles" following medication changes and discharge from [facility] yesterday. Patient reports that her [place] was increased, denies throat swelling itching, rash, or wheezing symptoms. Patient last took her medication 8.5 hours ago, reports that she also drank 4 large containers of water last night. Onset/Timin -: Minutes(s) Exposure: Unknown Symptoms: Other (edema) Severity: Mild Treatment Prior to Arrival: None Previous Allergy History: None - Related Data Home Medications Medication Instructions Recorded Confirmed Last Taken Gabapentin [Neurontin] 600 mg PO TID 03/07/19 03/07/19 Unknown [place] Carbonate [[place] 900 mg PO DAILY 03/07/19 03/07/19 Unknown Carbonate ER] Allergies Allergy/AdvReac Type Severity Reaction Status Date / Time fluoxetine HCl [From Prozac] AdvReac Severe aggressive Verified 03/07/19 05:28 behavior spironolactone AdvReac Severe hallucinations, Verified 03/07/19 05:29 cough, very low blood pressure amlodipine besylate AdvReac Intermediate patient Verified 03/07/19 05:29 [From Norvasc] does not recall hydrochlorothiazide AdvReac Intermediate did not Verified 03/07/19 05:29 help lower blood pressure and increased tremors metoprolol tartrate AdvReac Intermediate blood Verified 03/07/19 05:29 [From Lopressor] pressure bottomed out oxcarbazepine AdvReac Intermediate lifting Verified 03/07/19 05:29 [From Trileptal] head made her dizzy paroxetine HCl [From Paxil] AdvReac Intermediate anger and Verified 03/07/19 05:29 aggression bupropion [From Wellbutrin] AdvReac gain water Verified 03/07/19 05:29 weight diphenhydramine AdvReac BEHAVIORAL Verified 03/07/19 05:24 [From Benadryl] CHANGES hydroxyzine [From Vistaril] AdvReac RAPID Verified 03/07/19 05:26 HEART RATE quetiapine [From Seroquel] AdvReac psychosis Unverified 02/23/19 11:34 Travel Screening - Travel/Exposure Within Last 30 Days Have you traveled within the last 30 days?: No - Travel/Exposure Within Last Year Have you traveled outside the [place] in the last year?: No - Additonal Travel Details Have you been exposed to anyone with a communicable illness?: No - Travel Symptoms Symptom Screening: None Review of Systems Constitutional: Denies: Chills, Fever, Malaise, Night sweats Eyes: Denies: Eye discharge, Eye pain ENT: Denies: Congestion, Ear pain, Epistaxis Respiratory: Denies: Cough, Dyspnea, Wheezes Cardiovascular: Reports: Edema. Denies: Chest pain, Dyspnea on exertion Endocrine: Denies: Fatigue, Heat or cold intolerance Gastrointestinal: Denies: Abdominal pain, Nausea, Vomiting Genitourinary: Denies: Incontinence, Retention Musculoskeletal: Denies: Arthralgia, Back pain Skin: Denies: Bruising, Change in color Neurological: Denies: Abnormal gait, Confusion, Headache, Seizure Psychiatric: Denies: Anxiety Hematological/Lymphatic: Denies: Anemia, Blood Clots Past Medical History - SOCIAL HISTORY Smoking Status: Former smoker Alcohol Use: None Drug Use: None - RESPIRATORY Hx Respiratory Disorders: Yes Hx Pulmonary Embolism: Yes - CARDIOVASCULAR Hx Cardio Disorders: Yes Hx Deep Vein Thrombosis: Yes Hx Hypertension: Yes Comment:: PE 2002 - NEURO Hx Neuro Disorders: Yes Hx Headaches: Yes - GI Hx GI Disorders: Yes Hx Diverticulitis: Yes - Hx Genitourinary Disorders: Yes Hx Kidney Stones: Yes Hx UTI: Yes (" kidney infection") - ENDOCRINE Hx Endocrine Disorders: No - MUSCULOSKELETAL Hx Musculoskeletal Disorders: Yes Hx Arthritis: Yes - PSYCH Hx Psych Problems: Yes Hx Anxiety: Yes Hx Depression: Yes Comment:: ADHD, bipolar manic - HEMATOLOGY/ONCOLOGY Hx Hematology/Oncology Disorders: Yes Hx Clotting Problems: Yes (hx of blood clots in L leg) Family Medical History Any Significant Family History?: Yes Hx Cancer: Father, Mother, Grandparents Hx Diabetes: Father, Mother, Grandparents Hx HTN: Father, Mother, Grandparents Physical Exam - General General Appearance: Alert, Oriented x3, Cooperative, No acute distress, Other (No evidence for anaphylatic reaction is present on examination.) Limitations: No limitations - Head Head exam: Atraumatic, Normocephalic, Normal inspection Head exam detail: negative: Abrasion, Contusion, Ta's sign, General tenderness, Hematoma, Laceration - Eye Eye exam: Normal appearance. negative: Conjunctival injection, Periorbital swelling, Periorbital tenderness, Scleral icterus - ENT Ear exam: negative: Auricular hematoma, Auricular trauma Nasal Exam: negative: Active bleeding, Discharge, Dried blood, Foreign body Mouth exam: negative: Drooling, Laceration, Muffled voice, Tongue elevation - Neck Neck exam: Normal inspection. negative: Meningismus, Tenderness - Respiratory Respiratory exam: Normal lung sounds bilaterally. negative: Rales, Respiratory distress, Rhonchi, Stridor - Cardiovascular Cardiovascular Exam: Regular rate, Normal rhythm, Normal heart sounds - GI/Abdominal GI/Abdominal exam: Soft. negative: Rebound, Rigid, Tenderness - Rectal Rectal exam: Deferred - exam: Deferred - Extremities Extremities exam: Other (Mild edema to the fingers bilaterally). negative: Joint swelling, Tenderness - Back Back exam: Denies: CVA tenderness (R), CVA tenderness (L) - Neurological Neurological exam: Alert, Normal gait, Oriented X3 - Psychiatric Psychiatric exam: Normal affect, Normal mood - Skin Skin exam: Normal color. negative: Abrasion Type of lesion: negative: abrasion Course Vital Signs 03/07/19 05:20 Temperature 98.8 F Pulse Rate [ 82 Pulse Ox Probe] Respiratory 18 Rate Blood Pressure 136/84 [Left Arm] Pulse Ox 99 - Reevaluation(s) Reevaluation #1: 03/07/19 05:36 History and examination appear c/w possible adverse medication effect No evidence for anaphylatic reaction is present on examination. Recommended contacting her prescribing provider this morning for further recommendations. Patient appears stable for discharge at this time. Disposition Disposition: Discharge Clinical Impression: Adverse drug effect Qualifiers: Encounter type: initial encounter Qualified Code(s): T50.905A - Adverse effect of unspecified drugs, medicaments and biological substances, initial encounter Disposition: Home, Self-Care Condition: (2) Stable Instructions: Adverse Drug Reaction (ED) Additional Instructions: Return to ED if your symptoms worsen or if you have any concerns. Call your prescribing provider this morning for further recommendations. Forms: Patient Portal Access Time of Disposition: 05:32 Quality - Quality Measures Quality Measures: N/A - Blood Pressure Screening Does Patient Have Any of the Following: No Blood Pressure Classification: Pre-Hypertensive BP Reading Systolic Measurement: 136 Diastolic Measurement: 84 Screening for High Blood Pressure: < Pre-Hypertensive BP, F/U Documented > [G8950] Pre-Hypertensive Follow-up Interventions: Referral to alternative/primary care provider.
== END 2019-03-07 05:42 | disposition home or self-care (01) ==
LOC: ER 05:16
DX: R60.1 Generalized edema (principal); T43.595A Adverse effect of other antipsychotics and neuroleptics, initial encounter; I10 Essential (primary) hypertension; Z87.891 Personal history of nicotine dependence
CPT/HCPCS: 99282

== ENCOUNTER 2019-03-11 00:13 | Observation (INO) | payer BC, MEDICAID ==
[2019-03-11] MEDS ORDERED: ASPIRIN 325 MG TABLET PO ONE (00:27)
--- NOTE | 2019-03-11 00:37 | Emergency Department Record ---
History of Present Illness - General Chief Complaint: Chest Pain Stated Complaint: CHEST PAIN Time Seen by Provider: 03/11/19 00:27 Source: Patient Mode of Arrival: Ambulatory Limitations: No limitations - History of Present Illness Initial Comments: Pt with complaint of CP to left anterior chest described as a "pressure" causing shortness of breath, radiating to the left arm, and causing nausea. No diaphoresis. Hx of HTN on meds - took tonight. "Occasional smoker", denies drugs. No DM, no FM Hx cardiac disease. Pain occurred earlier today for 25 minutes and resolved. Onset at rest. Returned tonight watching TV in bed. Currently 9.5 of 10. No meds at home, no aspirin. 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 No issues since. Has tubal ligation. No recent travel, hormone use, surgery. MD Complaint: Chest pain Onset/Timin -: Minutes(s) Onset: During rest Pain Location: Substernal Pain Radiation: LUE Severity: Severe Severity scale (1-10): 9 Consistency: Constant Improves With: Nothing Worsens With: Nothing Context: New medications Anginal Symptoms: Nausea Treatments Prior to Arrival: None - Related Data Allergies Allergy/AdvReac Type Severity Reaction Status Date / Time fluoxetine HCl [From Prozac] AdvReac Severe aggressive Verified 03/07/19 05:28 behavior spironolactone AdvReac Severe hallucinations, Verified 03/07/19 05:29 cough, very low blood pressure amlodipine besylate AdvReac Intermediate patient Verified 03/07/19 05:29 [From Norvasc] does not recall hydrochlorothiazide AdvReac Intermediate did not Verified 03/07/19 05:29 help lower blood pressure and increased tremors metoprolol tartrate AdvReac Intermediate blood Verified 03/07/19 05:29 [From Lopressor] pressure bottomed out oxcarbazepine AdvReac Intermediate lifting Verified 03/07/19 05:29 [From Trileptal] head made her dizzy paroxetine HCl [From Paxil] AdvReac Intermediate anger and Verified 03/07/19 05:29 aggression bupropion [From Wellbutrin] AdvReac gain water Verified 03/07/19 05:29 weight diphenhydramine AdvReac BEHAVIORAL Verified 03/07/19 05:24 [From Benadryl] CHANGES hydroxyzine [From Vistaril] AdvReac RAPID Verified 03/07/19 05:26 HEART RATE quetiapine [From Seroquel] AdvReac psychosis Verified 03/11/19 00:42 Travel Screening - Travel/Exposure Within Last 30 Days Have you traveled within the last 30 days?: No - Travel/Exposure Within Last Year Have you traveled outside the [place] in the last year?: No - Additonal Travel Details Have you been exposed to anyone with a communicable illness?: No - Travel Symptoms Symptom Screening: None Review of Systems Constitutional: Denies: Chills, Fever, Weakness Eyes: Denies: Eye discharge, Photophobia, Vision change ENT: Denies: Congestion, Dental pain, Throat pain Respiratory: Denies: Cough, Dyspnea, Wheezes Cardiovascular: Reports: As per HPI. Denies: Dyspnea on exertion, Palpitations, Paroxysmal nocturnal dyspnea, Syncope Endocrine: Denies: Fatigue Gastrointestinal: Denies: Abdominal pain, Diarrhea, Nausea, Vomiting Genitourinary: Denies: Abnormal menses Musculoskeletal: Denies: Arthralgia, Back pain Skin: Denies: Bruising Neurological: Denies: Confusion, Headache, Weakness Psychiatric: Reports: Anxiety. Denies: Depression, Homicidal thoughts, Suicidal thoughts Hematological/Lymphatic: Reports: Blood Clots. Denies: Anemia Past Medical History - SOCIAL HISTORY Smoking Status: Light tobacco smoker (<10/day) Alcohol Use: None Drug Use: None - RESPIRATORY Hx Respiratory Disorders: Yes Hx Pulmonary Embolism: Yes - CARDIOVASCULAR Hx Cardio Disorders: Yes Hx Deep Vein Thrombosis: Yes (2002) Hx Hypertension: Yes Comment:: PE 2002 - NEURO Hx Neuro Disorders: Yes Hx Headaches: Yes - GI Hx GI Disorders: Yes Hx Diverticulitis: Yes - Hx Genitourinary Disorders: Yes Hx Kidney Stones: Yes Hx UTI: Yes (" kidney infection") - ENDOCRINE Hx Endocrine Disorders: No - MUSCULOSKELETAL Hx Musculoskeletal Disorders: Yes Hx Arthritis: Yes - PSYCH Hx Psych Problems: Yes Hx Anxiety: Yes Hx Depression: Yes Comment:: ADHD, bipolar manic - HEMATOLOGY/ONCOLOGY Hx Hematology/Oncology Disorders: Yes Hx Clotting Problems: Yes (hx of blood clots in L leg) Family Medical History Any Significant Family History?: Yes Hx Cancer: Father, Mother, Grandparents Hx Diabetes: Father, Mother, Grandparents Hx HTN: Father, Mother, Grandparents Physical Exam - General General Appearance: Alert, Oriented x3, Cooperative, No acute distress - Head Head exam: Atraumatic - Eye Eye exam: Normal appearance, PERRL - ENT ENT exam: Normal exam, Mucous membranes moist, Normal external ear exam, Normal orophraynx, TM's normal bilaterally - Neck Neck exam: Normal inspection, Full ROM. negative: Tenderness - Respiratory Respiratory exam: Normal lung sounds bilaterally. negative: Accessory muscle use, Respiratory distress, Wheezes - Cardiovascular Cardiovascular Exam: Regular rate, Normal rhythm, Normal heart sounds. negative: Irregular rhythm, Tachycardia Peripheral Pulses: 2+: Radial (R), Radial (L) - GI/Abdominal GI/Abdominal exam: Soft, Normal bowel sounds. negative: Guarding, Rebound, Tenderness - Extremities Extremities exam: Normal inspection, Full ROM. negative: Calf tenderness, Pedal edema, Tenderness - Back Back exam: Reports: Normal inspection. Denies: Paraspinal tenderness - Neurological Neurological exam: Alert, Normal gait, Oriented X3 - Psychiatric Psychiatric exam: Normal affect, Normal mood. negative: Depressed, Homicidal ideation, Suicidal ideation - Skin Skin exam: Normal color. negative: Rash Course Vital Signs 03/11/19 00:16 Pulse Rate [ 107 H Pulse Ox Probe] Respiratory 24 Rate Blood Pressure 175/118 [Left Arm] Pulse Ox 100 - Reevaluation(s) Reevaluation #1: 03/11/19 00:37 Pt with CP and HEART Score 3 - EKG unchanged. 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 Pt relates hx of Bipolar disorder but states no suicidal. Daughter present in room. Psych meds changed in psych facility. No hx chest pain or prior evaluation. Reevaluation #2: 03/11/19 01:09 Pt with classic description of cardiac and associated tobacco use, obesity, HTN, and elevated cholesterol. Baseline EKG and labs normal. Plan is for admission with serial testing of Trops. Procedures - EKG Initial Date: 03/11/19 Time: 00:29 EKG: No Acute Changes (prior -09-14) Medical Decision Making - Management Options MDM Management: Additional Work-up Planned (e.g. ADM/Transfer/OP Study) - Data Complexity MDM Data: Labs Ordered and/or Reviewed, X-Ray Ordered and/or Reviewed, EKG Ordered and/or Reviewed, Independent Visualization of Image, Tracing, or Specimen, Decision to Obtain Old Record, Review and Summary of Old Record Discu ssed - Lab Data Result diagrams: 03/11/19 00:30 03/11/19 00:30 - EKG Data -: EKG Interpreted by Me EKG: No Acute Changes - Radiology Data Radiology results: Image reviewed -: Radiology Exam Interpreted by Myself - Medical Decision Making admission with further testing Disposition Disposition: Admit Clinical Impression: Chest pain Disposition: Still a Patient at [facility] Decision to Admit: Admit from ER Decision to Admit Date: 03/11/19 Decision to Admit Time: 01:11 Accepting Physician: Adarsh Time Discussed w/Accepting Physician: 01:11 (Mio BAKER) Condition: (3) Guarded Forms: Patient Portal Access Time of Disposition: 01:12 Quality - Quality Measures Quality Measures: N/A - Blood Pressure Screening Does Patient Have Any of the Following: No Blood Pressure Classification: Hypertensive Reading Systolic Measurement: 128 Diastolic Measurement: 102 Screening for High Blood Pressure: Patient Exclusion, Hx of HTN [[id number]]
[2019-03-11 00:39] LABS: ABSOLUTE NEUTROPHIL COUNT 6.35; BASO % 0.3 % (0-6); EOS % 6.5 % (0-6); GRAN % 53.9 % (47-80); LYMPH % 32.2 % (16-45); MEAN CELL VOLUME 90.9 fl (81-97); MEAN CORPUSCULAR HEMOGLOBIN 29.5 pg (27-33); MEAN CORPUSCULAR HGB CONC 32.4 g/dl (32-36); MEAN PLATELET VOLUME 10.4 fl (7.4-10.4); MONO % 7.1 % (0-9); PLATELET COUNT 346 K/uL (130-400); RED BLOOD COUNT 4.07 M/uL (3.80-5.40); RED CELL DISTRIBUTION WIDTH 14.2 % (11.5-14.5); WHITE BLOOD COUNT W/O DIFF 11.8 K/uL (4.2-12.2)
[2019-03-11] MEDS: NITROGLYCERIN 0.4MG SL TABLET #25 BTL SL PRN ×3 (00:42→01:20)
[2019-03-11] MEDS ORDERED: ONDANSETRON HCL IV 4 MG/2 ML VIAL IVP ONE (00:44)
[2019-03-11 00:50] LABS: URINE APPEARANCE CLEAR; URINE BILIRUBIN NEGATIVE (NEGATIVE); URINE BLOOD NEGATIVE (NEGATIVE); URINE COLOR YELLOW; URINE GLUCOSE (UA) NEGATIVE (NEGATIVE); URINE KETONE NEGATIVE (NEGATIVE); URINE LEUKOCYTE ESTERASE SMALL (NEGATIVE); URINE NITRITE NEGATIVE (NEGATIVE); URINE PROTEIN NEGATIVE (NEGATIVE); URINE UROBILINOGEN 0.2 E.U./dL (0.20 - 1.00)
[2019-03-11 00:51] LABS: URINE BACTERIA NONE SEEN; URINE RBC 0 - 2 (NONE SEEN); URINE WBC 0 - 2 (0-2/hpf)
[2019-03-11 00:52] LABS: BLOOD UREA NITROGEN 12 mg/dL (6-20)
[2019-03-11 00:53] LABS: BILIRUBIN,TOTAL < 0.20 mg/dL (0.2-1.0); CREATININE 0.6 mg/dL (0.5-0.9); EST GLOMERULAR FILTRATION RATE > 60 mL/min; TOTAL PROTEIN 6.4 g/dL (6.6-8.7)
[2019-03-11 00:55] LABS: GLUCOSE,RANDOM 144 mg/dL (74-109); INR 0.9; PARTIAL THROMBOPLASTIN TIME 23.4 SECONDS (24.5-39.1); PROTHROMBIN TIME (PATIENT) 9.6 SECONDS (9.5-12.1)
[2019-03-11 00:58] LABS: ALB/GLOB RATIO 1.8 (1.1-1.8); ALBUMIN 4.1 g/dL (4.0-5.0); ALKALINE PHOSPHATASE 52 U/L (35-104); ALT/SGPT 13 U/L (<33); AST/SGOT 16 U/L (10.0-35.0)
[2019-03-11 01:08] LABS: THYROID STIMULATING HORMONE 4.12 uIU/mL (0.270-4.20)
[2019-03-11] MEDS ORDERED: ACETAMINOPHEN 500 MG TABLET PO PRN (01:59)
--- NOTE | 2019-03-11 07:32 | RADIOLOGY REPORT ---
EXAM: CHEST, TWO VIEWS HISTORY: MID CHEST PAIN AND BILATERAL ARM PAIN. TECHNIQUE: Two views of the chest were obtained. Comparison: Previous CTA of the chest dated 11/11/15. FINDINGS: There are low lung volumes. The heart, mediastinum, and pulmonary vasculature are normal. There are no acute infiltrates or effusions. There is no pneumothorax. The bones appear intact. IMPRESSION: NO ACUTE CHEST PATHOLOGY. JOB NUMBER: [id number] MTDD
[2019-03-11 07:56] LABS: ABSOLUTE NEUTROPHIL COUNT 5.81; BASO % 0.5 % (0-6); EOS % 7.4 % (0-6); GRAN % 54.9 % (47-80); HEMATOCRIT 37.2 % (35.0-47.0); LYMPH % 29.1 % (16-45); MEAN CORPUSCULAR HEMOGLOBIN 29.3 pg (27-33); MEAN CORPUSCULAR HGB CONC 32.3 g/dl (32-36); MEAN PLATELET VOLUME 10.4 fl (7.4-10.4); MONO % 8.1 % (0-9); PLATELET COUNT 324 K/uL (130-400); RED BLOOD COUNT 4.09 M/uL (3.80-5.40); RED CELL DISTRIBUTION WIDTH 14.3 % (11.5-14.5); WHITE BLOOD COUNT W/O DIFF 10.6 K/uL (4.2-12.2)
[2019-03-11 08:40] LABS: BLOOD UREA NITROGEN 11 mg/dL (6-20); CREATININE 0.6 mg/dL (0.5-0.9); EST GLOMERULAR FILTRATION RATE > 60 mL/min; GLUCOSE,RANDOM 99 mg/dL (74-109)
[2019-03-11] MEDS ORDERED: ASPIRIN 81 MG TABEC PO SCH (10:00)
--- NOTE | 2019-03-11 10:25 | History & Physical ---
History of Present Illness - Date of Service Date of Service for History & Physical: 03/12/19 - History of Present Illness Admitting Diagnosis: Chest pain History of Present Illness: Regi Celestin is a 38 y.o. F who presented to the [facility] ED with c/o left anterior chest pressure, SOB, pain radiating down left arm and nausea. Pain 9/10. She denied diaphoresis. She reported that the pain had occurred earlier in the day for approximately 25 minutes but then resolved. Symptoms started at rest the first time and again while lying in bed. PMHx significant for HTN, for which she reports that she took her medication, DVT with PE in 2002 r/t BCP use and smoking, ADHD, anxiety and bipolar d/o. She denies DM or significant FMx of cardiac disease. Reports that she did take her BP medications as prescribed. PCP: Aminta Jung NP ED Course -Vitals: T 97.9, HR 92, RR 24, BP 175/118, SP02 100% on RA -EKG: Unchanged -Ddimer slightly elevated at 0.62 -CXR: No acute process -Troponins Neg x 2 -HEART score 3 03/11/19 1130 Vitals: T 98.6, HR 90, RR 16, BP 122/98, 99% on RA On evaluation, pt sitting up in bed. A&Ox3. No apparent distress. Denied having any chest pain/pressure, SOB or radiating pain. Reported that she related her symptoms to a panic attack because "I am crazy" but wanted to be sure she was "okay". Was at [facility] for mental health problems and recently discharged on new psychiatric medications. States that she has been trying to get into her PCP office for f/u after d/c from the [facility] hospital but couldn't get in fast enough. Reports that she has been out of her Tizanidine for pain and thinks that may have attributed to her anxiety. Reports that her anxiety isn't always controlled and she never sleeps. Was put on Propranolol at 160mg q. day which somewhat helps. Is worried about having another panic attack and returning to ED. D/t elevation in D-dimer, eventhough known hx of PE, ordered CTA of chest to r/o PE, which did not show any evidence of PE. Discussed with pt that an inpatient Cardiology consult would not be placed to unavailability until next week and that she would either need to f/u as an outpatient or possibly transfer to a higher level of care. Pt then stated that she did have a stress test in 2016 that was normal. D/t normal stress test 3 years ago, normal troponins and EKG, agreed that she could f/u outpatient with cardiology and PCP for further evaluation. Pt also c/o new urinary incontinence since leaving [facility] and believes it may be medication related. Travel Screening - Travel/Exposure Within Last 30 Days Have you traveled within the last 30 days?: No - Travel/Exposure Within Last Year Have you traveled outside the [place] in the last year?: No - Additonal Travel Details Have you been exposed to anyone with a communicable illness?: No - Travel Symptoms Symptom Screening: None Review of Systems Reviewed: No additional complaints except as noted below Constitutional: Denies: Chills, Fever, Weakness Eyes: Denies: Photophobia, Vision change ENT: Denies: Congestion, Throat pain Respiratory: Denies: Cough, Dyspnea, Wheezes Cardiovascular: Reports: As per HPI. Denies: Chest pain, Dyspnea on exertion, Palpitations, Paroxysmal nocturnal dyspnea, Syncope Endocrine: Denies: Fatigue Gastrointestinal: Denies: Abdominal pain, Diarrhea, Nausea, Vomiting Genitourinary: Reports: Incontinence. Denies: Abnormal menses Musculoskeletal: Denies: Arthralgia, Back pain Skin: Denies: Bruising Neurological: Denies: Confusion, Headache, Weakness Psychiatric: Reports: Anxiety. Denies: Depression, Homicidal thoughts, Suicidal thoughts Hematological/Lymphatic: Reports: Blood Clots. Denies: Anemia Past Medical History - SOCIAL HISTORY Smoking Status: Light tobacco smoker (<10/day) Alcohol Use: None Drug Use: None - RESPIRATORY Hx Respiratory Disorders: Yes Hx Pulmonary Embolism: Yes - CARDIOVASCULAR Hx Cardio Disorders: Yes Hx Deep Vein Thrombosis: Yes (2002) Hx Hypertension: Yes Comment:: PE 2002 - NEURO Hx Neuro Disorders: Yes Hx Headaches: Yes - GI Hx GI Disorders: Yes Hx Diverticulitis: Yes - Hx Genitourinary Disorders: Yes Hx Kidney Stones: Yes Hx UTI: Yes (" kidney infection") - ENDOCRINE Hx Endocrine Disorders: No - MUSCULOSKELETAL Hx Musculoskeletal Disorders: Yes Hx Arthritis: Yes - PSYCH Hx Psych Problems: Yes Hx Anxiety: Yes Hx Depression: Yes Comment:: ADHD, bipolar manic - HEMATOLOGY/ONCOLOGY Hx Hematology/Oncology Disorders: Yes Hx Clotting Problems: Yes (hx of blood clots in L leg) Family Medical History Any Significant Family History?: Yes Hx Cancer: Father, Mother, Grandparents Hx Diabetes: Father, Mother, Grandparents Hx HTN: Father, Mother, Grandparents H&P Meds/Allergies - Allergies Allergies: Allergies Allergy/AdvReac Type Severity Reaction Status Date / Time fluoxetine HCl [From Prozac] AdvReac Severe aggressive Verified 03/07/19 05:28 behavior spironolactone AdvReac Severe hallucinations, Verified 03/07/19 05:29 cough, very low blood pressure amlodipine besylate AdvReac Intermediate patient Verified 03/07/19 05:29 [From Norvasc] does not recall hydrochlorothiazide AdvReac Intermediate did not Verified 03/07/19 05:29 help lower blood pressure and increased tremors metoprolol tartrate AdvReac Intermediate blood Verified 03/07/19 05:29 [From Lopressor] pressure bottomed out oxcarbazepine AdvReac Intermediate lifting Verified 03/07/19 05:29 [From Trileptal] head made her dizzy paroxetine HCl [From Paxil] AdvReac Intermediate anger and Verified 03/07/19 05:29 aggression bupropion [From Wellbutrin] AdvReac gain water Verified 03/07/19 05:29 weight diphenhydramine AdvReac BEHAVIORAL Verified 03/07/19 05:24 [From Benadryl] CHANGES hydroxyzine [From Vistaril] AdvReac RAPID Verified 03/07/19 05:26 HEART RATE quetiapine [From Seroquel] AdvReac psychosis Verified 03/11/19 00:42 - Home Medications Home Medications Medication Instructions Recorded Confirmed Last Taken Cholecalciferol (Vitamin D3) 1,000 unit PO DAILY 03/11/19 03/11/19 03/11/19 [Vitamin D3] Cyanocobalamin (Vitamin B-12) 5,000 mcg PO DAILY 03/11/19 03/11/19 03/11/19 [Vitamin B12] Melatonin 10 mg PO DAILY 03/11/19 03/11/19 03/10/19 Previous Rx's Medication Instructions Recorded Alprazolam 0.5 mg PO DAILY PRN #8 tablet 03/11/19 Tizanidine HCl 4 mg PO TID #90 tablet 03/11/19 - Active Medications Active Medications: Current Medications Acetaminophen (Tylenol 500mg Tab) 1,000 mg PO Q6H PRN PRN Reason: PAIN - MILD(1-4)/FEVER Last Admin: 03/11/19 06:48 Dose: 1,000 mg Documented by: Aspirin (Ecotrin (Ec)) 81 mg PO DAILY MARY Last Admin: 03/11/19 10:15 Dose: 81 mg Documented by: Physical Exam - Vital Signs Vital Signs: Vital Signs - Last 24 Hrs Temp Pulse Pulse Resp BP Pulse Ox 03/11/19 10:03 90 80 16 03/11/19 08:00 98.6 F 80 16 122/98 99 03/11/19 03:53 98.1 F 73 14 97/52 100 03/11/19 02:13 99 03/11/19 02:00 98.5 F 85 18 124/97 99 03/11/19 01:32 90 125/63 03/11/19 01:19 92 H 128/102 98 03/11/19 01:05 97.9 F 03/11/19 01:01 99 H 119/105 03/11/19 00:48 99 H 143/89 96 03/11/19 00:40 92 H 148/102 03/11/19 00:16 107 H 24 175/118 100 - General General Appearance: Alert, Oriented x3, Cooperative, No acute distress Limitations: No limitations - Head Head exam: Atraumatic - Eye Eye exam: Normal appearance, PERRL - ENT ENT exam: Normal exam, Mucous membranes moist, Normal external ear exam, Normal orophraynx, TM's normal bilaterally - Neck Neck exam: Normal inspection, Full ROM. negative: Tenderness - Respiratory Respiratory exam: Normal lung sounds bilaterally. negative: Accessory muscle use, Respiratory distress, Wheezes - Cardiovascular Cardiovascular Exam: Regular rate, Normal rhythm, Normal heart sounds. neg ative: Irregular rhythm, Tachycardia Peripheral Pulses: 2+: Radial (R), Radial (L) - GI/Abdominal GI/Abdominal exam: Soft, Normal bowel sounds. negative: Guarding, Rebound, Tenderness - Extremities Extremities exam: Normal inspection, Full ROM. negative: Calf tenderness, Pedal edema, Tenderness - Back Back exam: Reports: Normal inspection. Denies: Paraspinal tenderness - Neurological Neurological exam: Alert, Normal gait, Oriented X3 - Psychiatric Psychiatric exam: Normal affect, Normal mood. negative: Depressed, Homicidal ideation, Suicidal ideation - Skin Skin exam: Normal color. negative: Rash Results - Labs Result Diagrams: 03/11/19 07:27 03/11/19 07:27 Labs Last 24 Hours: Laboratory Results - last 24 hr 03/11/19 03/11/19 03/11/19 00:30 00:30 00:30 WBC 11.8 RBC 4.07 Hgb 12.0 Hct 37.0 MCV 90.9 MCH 29.5 MCHC 32.4 RDW 14.2 Plt Count 346 MPV 10.4 Gran % 53.9 Lymphocytes % 32.2 Monocytes % 7.1 Eosinophils % 6.5 H Basophils % 0.3 Absolute Neutrophils 6.35 PT 9.6 INR 0.9 APTT 23.4 L D-Dimer 0.62 H Sodium 139 Potassium 3.9 Chloride 106 Carbon Dioxide 23.0 Anion Gap 10.0 BUN 12 Creatinine 0.6 Estimated GFR > 60 Random Glucose 144 H Calcium 9.4 Total Bilirubin < 0.20 L AST 16 ALT 13 Alkaline Phosphatase 52 Troponin T < 0.010 NT-Pro-B Natriuret Pep 97.60 Total Protein 6.4 L Albumin 4.1 Globulin 2.3 Albumin/Globulin Ratio 1.8 TSH 4.12 Urine Color Urine Appearance Urine pH Ur Specific Flushing Urine Protein Urine Glucose (UA) Urine Ketones Urine Blood Urine Nitrite Urine Bilirubin Urine Urobilinogen Ur Leukocyte Esterase Urine RBC Urine WBC Ur Epithelial Cells Urine Bacteria 03/11/19 03/11/19 03/11/19 00:50 07:27 07:27 WBC 10.6 RBC 4.09 Hgb 12.0 Hct 37.2 MCV 91.0 MCH 29.3 MCHC 32.3 RDW 14.3 Plt Count 324 MPV 10.4 Gran % 54.9 Lymphocytes % 29.1 Monocytes % 8.1 Eosinophils % 7.4 H Basophils % 0.5 Absolute Neutrophils 5.81 PT INR APTT D-Dimer Sodium 140 Potassium 4.5 Chloride 107 Carbon Dioxide 23.0 Anion Gap 10.0 BUN 11 Creatinine 0.6 Estimated GFR > 60 Random Glucose 99 Calcium 9.1 Total Bilirubin AST ALT Alkaline Phosphatase Troponin T NT-Pro-B Natriuret Pep Total Protein Albumin Globulin Albumin/Globulin Ratio TSH Urine Color Yellow Urine Appearance Clear Urine pH 6.0 Ur Specific Flushing 1.025 Urine Protein Negative Urine Glucose (UA) Negative Urine Ketones Negative Urine Blood Negative Urine Nitrite Negative Urine Bilirubin Negative Urine Urobilinogen 0.2 Ur Leukocyte Esterase Small H Urine RBC 0 - 2 Urine WBC 0 - 2 Ur Epithelial Cells 7 - 10 Urine Bacteria None seen 03/11/19 07:27 WBC RBC Hgb Hct MCV MCH MCHC RDW Plt Count MPV Gran % Lymphocytes % Monocytes % Eosinophils % Basophils % Absolute Neutrophils PT INR APTT D-Dimer Sodium Potassium Chloride Carbon Dioxide Anion Gap BUN Creatinine Estimated GFR Random Glucose Calcium Total Bilirubin AST ALT Alkaline Phosphatase Troponin T < 0.010 NT-Pro-B Natriuret Pep Total Protein Albumin Globulin Albumin/Globulin Ratio TSH Urine Color Urine Appearance Urine pH Ur Specific Flushing Urine Protein Urine Glucose (UA) Urine Ketones Urine Blood Urine Nitrite Urine Bilirubin Urine Urobilinogen Ur Leukocyte Esterase Urine RBC Urine WBC Ur Epithelial Cells Urine Bacteria VTE H&P Assessment - Risk for VTE Risk for VTE: Yes Risk Level: Moderate Risk Assessment Date: 03/11/19 Risk Assessment Time: 11:30 VTE Orders Placed or Will Be Placed: No VTE Reason for No Prophylaxis: Contraindicated AMI H&P Plan - EKG Initial Date: 03/11/19 Time: 00:29 EKG: No Acute Changes (prior 07-28-18) Plan - Detailed Diagnosis and Plan (1) Chest pain Status: Acute Base Code: R07.9 - CHEST PAIN, UNSPECIFIED Comment: 03/11/19 -CXR: no acute process -D-dimer: 0.62 -CTA chest: Negative for PE -U/A: Negative -EKG: WNL, unchaged -CBC/CMP unremarkable -VSS -Negative Stress Test in 2016 -Outpatient Cardiology consult placed (2) Urinary incontinence Status: Acute Base Code: R32 - UNSPECIFIED URINARY INCONTINENCE Comment: 03/11/19 -U/A negative -Recently started Perphenazine during a stay a [facility], which is when incontinence -Urinary incontinence listed as a S/E of Perphenazine per Uptodate -Recommend workup by PCP (3) Full code status Status: Acute Base Code: Z78.9 - OTHER SPECIFIED HEALTH STATUS Comment: 03/11/19 -Full code this admission (4) DVT prophylaxis Status: Acute Base Code: Z29.9 - ENCOUNTER FOR PROPHYLACTIC MEASURES, UNSPECIFIED Comment: 03/11/19 -Hx of DVT/PE in 2002 r/t BCP use and smoking -No longer on BCP d/t tubal ligation, continues to smoke -Less than 12 hour OBV stay on unit, no anticoagulation ordered
--- NOTE | 2019-03-11 12:21 | Discharge Summary ---
Providers Discharge Summary Date: 03/11/19 Date of admission: 03/11/19 01:49 Attending physician: LOREN CHINCHILLA Physical Exam - Vital Signs Vital Signs: Vital Signs - Last 24 Hrs Temp Pulse Pulse Resp BP Pulse Ox 03/11/19 10:03 90 80 16 03/11/19 08:00 98.6 F 80 16 122/98 99 03/11/19 03:53 98.1 F 73 14 97/52 100 03/11/19 02:13 99 03/11/19 02:00 98.5 F 85 18 124/97 99 03/11/19 01:32 90 125/63 03/11/19 01:19 92 H 128/102 98 03/11/19 01:05 97.9 F 03/11/19 01:01 99 H 119/105 03/11/19 00:48 99 H 143/89 96 03/11/19 00:40 92 H 148/102 03/11/19 00:16 107 H 24 175/118 100 - General General Appearance: Alert, Oriented x3, Cooperative, No acute distress Limitations: No limitations - Head Head exam: Atraumatic - Eye Eye exam: Normal appearance, PERRL - ENT ENT exam: Normal exam, Mucous membranes moist, Normal external ear exam, Normal orophraynx, TM's normal bilaterally - Neck Neck exam: Normal inspection, Full ROM. negative: Tenderness - Respiratory Respiratory exam: Normal lung sounds bilaterally. negative: Accessory muscle use, Respiratory distress, Wheezes - Cardiovascular Cardiovascular Exam: Regular rate, Normal rhythm, Normal heart sounds. negative: Irregular rhythm, Tachycardia Peripheral Pulses: 2+: Radial (R), Radial (L) - GI/Abdominal GI/Abdominal exam: Soft, Normal bowel sounds. negative: Guarding, Rebound, Tenderness - Extremities Extremities exam: Normal inspection, Full ROM. negative: Calf tenderness, Pedal edema, Tenderness - Back Back exam: Reports: Normal inspection. Denies: Paraspinal tenderness - Neurological Neurological exam: Alert, Normal gait, Oriented X3 - Psychiatric Psychiatric exam: Normal affect, Normal mood. negative: Depressed, Homicidal ideation, Suicidal ideation - Skin Skin exam: Normal color. negative: Rash Hospitalization - Hospitalization Admission Diagnosis: Chest pain - Problem List/Discharge Diagnosis (1) Chest pain Status: Acute Base Code: R07.9 - CHEST PAIN, UNSPECIFIED Comment: 03/11/19 -Ddx: Anxiety vs. GI related vs. heart disease? -#8 Xanax 0.25mg tablets prescribed for extreme anxiety. Advised pt that continued prescriptions for this would likely not be given by PCP. -CXR: no acute process -D-dimer: 0.62 -CTA chest: Negative for PE -U/A: Negative -EKG: WNL, unchaged -CBC/CMP unremarkable -VSS -Negative Stress Test in 2016 -Outpatient Cardiology consult placed (2) Urinary incontinence Status: Acute Base Code: R32 - UNSPECIFIED URINARY INCONTINENCE Comment: 03/11/19 -U/A negative -Recently started Perphenazine during a stay a [facility], which is when incontinence -Urinary incontinence listed as a S/E of Perphenazine per Uptodate -Recommend workup by PCP (3) Full code status Status: Acute Base Code: Z78.9 - OTHER SPECIFIED HEALTH STATUS Comment: 03/11/19 -Full code this admission (4) DVT prophylaxis Status: Acute Base Code: Z29.9 - ENCOUNTER FOR PROPHYLACTIC MEASURES, UNSPECIFIED Comment: 03/11/19 -Hx of DVT/PE in 2002 r/t BCP use and smoking -No longer on BCP d/t tubal ligation, continues to smoke -Less than 12 hour OBV stay on unit, no anticoagulation ordered - Hospitalization Course Disposition: Home, Self-Care Hospital Course: Regi Celestin is a 38 y.o. F who presented to the [facility] ED with c/o left anterior chest pressure, SOB, pain radiating down left arm and nausea. Pain 9/10. She denied diaphoresis. She reported that the pain had occurred earlier in the day for approximately 25 minutes but then resolved. Symptoms started at rest the first time and again while lying in bed. PMHx significant for HTN, for which she reports that she took her medication, DVT with PE in 2002 r/t BCP use and smoking, ADHD, anxiety and bipolar d/o. She denies DM or significant FMx of cardiac disease. Reports that she did take her BP medications as prescribed. PCP: Aminta Jung NP ED Course -Vitals: T 97.9, HR 92, RR 24, BP 175/118, SP02 100% on RA -EKG: Unchanged -Ddimer slightly elevated at 0.62 -CXR: No acute process -Troponins Neg x 2 -HEART score 3 03/11/19 1130 Vitals: T 98.6, HR 90, RR 16, BP 122/98, 99% on RA On evaluation, pt sitting up in bed. A&Ox3. No apparent distress. Denied having any chest pain/pressure, SOB or radiating pain. Reported that she related her symptoms to a panic attack because "I am crazy" but wanted to be sure she was "okay". Was at [facility] for mental health problems and recently discharged on new psychiatric medications. States that she has been trying to get into her PCP office for f/u after d/c from the [facility] but couldn't get in fast enough. Reports that she has been out of her Tizanidine for pain and thinks that may have attributed to her anxiety. Reports that her anxiety isn't always controlled and she never sleeps. Was put on Propranolol at 160mg q. day which somewhat helps. Is worried about having another panic attack and returning to ED. D/t elevation in D-dimer, eventhough known hx of PE, ordered CTA of chest to r/o PE, which did not show any evidence of PE. Discussed with pt that an inpatient Cardiology consult would not be placed to unavailability until next week and that she would either need to f/u as an outpatient or possibly transfer to a higher level of care. Pt then stated that she did have a stress test in 2016 that was normal. D/t normal stress test 3 years ago, normal troponins and EKG, agreed that she could f/u outpatient with cardiology and PCP for further evaluation. Pt also c/o new urinary incontinence since leaving [facility] and believes it may be medication related. Procedures: Imaging and X-Rays 03/11/19 00:27 CHEST 2 VIEWS [RAD] Stat 03/11/19 10:22 CHEST CTA w contrast [CTA] Stat Cardiology Procedures 03/11/19 00:27 Outsole Cementer Machine NOW EKG NOW 03/11/19 01:59 Outsole Cementer Machine .Continuous EKG QDX2@0600 Abnormal Labs: Abnormal Lab Results 03/11/19 03/11/19 03/11/19 Range/Units 00:30 00:30 00:30 Eosinophils % 6.5 H (0-6) % APTT 23.4 L (24.5-39.1) SECONDS D-Dimer 0.62 H (0-0.59) mg/L FEU Random Glucose 144 H (74-109) mg/dL Total Bilirubin < 0.20 L (0.2-1.0) mg/dL Total Protein 6.4 L (6.6-8.7) g/dL Ur Leukocyte Esterase (NEGATIVE) 03/11/19 03/11/19 Range/Units 00:50 07:27 Eosinophils % 7.4 H (0-6) % APTT (24.5-39.1) SECONDS D-Dimer (0-0.59) mg/L FEU Random Glucose (74-109) mg/dL Total Bilirubin (0.2-1.0) mg/dL Total Protein (6.6-8.7) g/dL Ur Leukocyte Esterase Small H (NEGATIVE) Condition at Discharge: (3) Guarded Discharge Medications - Discharge Medications Prescriptions: Alprazolam 0.5 mg PO DAILY PRN #8 tablet PRN Reason: Anxiety Tizanidine HCl 4 mg PO TID #90 tablet Home Medications: Ambulatory Orders Acetaminophen [Tylenol Extra Strength] 1,000 mg PO BID tab 03/03/18 [Last Taken 03/10/19] Gabapentin [Neurontin] 600 mg PO TID 03/07/19 [Last Taken 03/10/19] [place] Carbonate [[place] Carbonate ER] 900 mg PO DAILY 03/07/19 [Last Taken 03/10/19] Alprazolam 0.5 mg PO DAILY PRN #8 tablet 03/11/19 [Last Taken Unknown] Cholecalciferol (Vitamin D3) [Vitamin D3] 1,000 unit PO DAILY 03/11/19 [Last Taken 03/11/19] Cyanocobalamin (Vitamin B-12) [Vitamin B12] 5,000 mcg PO DAILY 03/11/19 [Last Taken 03/11/19] Melatonin 10 mg PO DAILY 03/11/19 [Last Taken 03/10/19] Tizanidine HCl 4 mg PO TID #90 tablet 03/11/19 [Last Taken Unknown] Discharge Plan - Discharge Instructions Diet at Discharge: Regular Diet Instructions: Chest Pain (DC) Additional Instructions: Follow up with Aminta Jung regarding stress incontinence as it could be related to your new medication Perphenazine. Follow up with Cardiology as an outpatient Quality Measures - Quality Measures Quality Measures: Documentation of Current Medications in Medical Record, Screening for High Blood Pressure and F/U Documented - Current Medications Quality Measure: Measure #130: Documentation of Current Medications Documentation of Current Medications: <Current Medications Documented/Reviewed> [[id number]] - Blood Pressure Screening Quality Measure: Screening for High Blood Pressure and Follow-Up Documented Does Patient Have Any of the Following: Active Dx of HTN Blood Pressure Classification: Pre-Hypertensive BP Reading Systolic Measurement: 146 Diastolic Measurement: 87 Screening for High Blood Pressure: Patient Exclusion, Hx of HTN [G9744] - Elder Abuse Suspicion Index EASI Reference Information: Pedro JARA, Belen C, Bronwyn D, Shaheen Vargas.Development and validation of a tool to assist physicians identification of elder abuse: The Elder Abuse Suspicion Index (EASI ). Journal of Elder Abuse and Neglect, 2008; 20 (3): 276-300.
--- NOTE | 2019-03-13 13:35 | CT ANGIOGRAM REPORT ---
EXAM: CT ANGIOGRAM CHEST CTA w contrast HISTORY: STERNAL CHEST PAIN AND CHEST PRESSURE WITH DIFFICULTY BREATHING. PREVIOUS HISTORY OF PULMONARY EMBOLUS. TECHNIQUE: Standard CT angiography of the chest was performed with postprocessing following the bolus administration of 80 mL of Omnipaque-350. Additional coronal and sagittal maximum intensity projection reformatted images were performed on an independent workstation under concurrent supervision. COMPARISON: November 11, 2015. FINDINGS: The heart and aorta are normal. The pulmonary arterial tree is unremarkable. There is no evidence for pulmonary embolus. There is no mediastinal or hilar lymphadenopathy. There is a band-like area of atelectasis or scarring within the lingula. The remaining lung lentz are clear. There are no acute infiltrates or effusions. There is no pneumothorax. The chest wall and axillary regions are normal. Visualized portions of the upper abdomen are unremarkable. There are no acute osseous abnormalities. IMPRESSION: 1. NO ACUTE INTRATHORACIC PATHOLOGY. THERE IS NO EVIDENCE FOR PULMONARY EMBOLUS OR OTHER ACUTE CARDIOPULMONARY PROCESS. 2. MILD ATELECTASIS OR SCARRING WITHIN THE LINGULA. JOB NUMBER: [id number] [facility]
== END 2019-03-11 13:00 | disposition home or self-care (01) ==
LOC: ER 00:13 → MEDSURG 01:49
PROVIDERS: ADMIT Internal Medicine; ATTEND Internal Medicine
DX: R07.9 Chest pain, unspecified (principal); R06.02 Shortness of breath; M79.602 Pain in left arm; R11.0 Nausea; R32 Unspecified urinary incontinence; I10 Essential (primary) hypertension; M19.90 Unspecified osteoarthritis, unspecified site; F90.9 Attention-deficit hyperactivity disorder, unspecified type; F31.9 Bipolar disorder, unspecified; Z86.711 Personal history of pulmonary embolism; Z86.718 Personal history of other venous thrombosis and embolism; Z87.442 Personal history of urinary calculi; F17.210 Nicotine dependence, cigarettes, uncomplicated
CPT/HCPCS: 85025; 85730; 85610; 80048; 80053; 81001; 84443; 84484; 85379; 83880; 71046; 71275; 93005; 93010; G0378; Q9967; J2405; 96374; 99236; 99285

== ENCOUNTER 2019-08-05 19:30 | Emergency (ER) | payer BC, MEDICAID ==
[2019-08-05] MEDS ORDERED: ACETAMINOPHEN 1,000 MG/100 ML BTL IVPB ONE (19:54)
--- NOTE | 2019-08-05 20:01 | Emergency Department Record ---
History of Present Illness - General Chief Complaint: Chest Pain Stated Complaint: CHEST PAIN Time Seen by Provider: 08/05/19 19:44 Source: Patient Mode of Arrival: Ambulatory Limitations: No limitations - History of Present Illness Initial Comments: The patient is here due to sharp stabbing L sided CP that has been coming and going for 2 weeks. The pain is located in the retrosternal area and is usually nonradiating. She denies any pleuritic pain, SOB, LUCIO, sweating or nausea with the pain. The patient states the pain will last from a few to 30 minutes at a time and can be gone for minutes to hours. It is not worse with exertion, bending, eating, or breathing. The patient denies any cardiac hx but did have a stress test 3 months ago here at [facility] but has not followed up with the Philosophy Lecturer. She does have cardiac risk factors of HTN, tobacco use, high Cholesterol and Triglycerides, and a weak family hx of CAD with uncles having KS's. The patient also states she did have a DVT and PE in 2002 but was on OCP's then and is not on them now. MD Complaint: Chest pain Onset/Timin -: Week(s) Pain Location: Substernal Pain Radiation: None Severity: Moderate Severity scale (1-10): 7 Quality: Sharp Consistency: Intermittent Improves With: Nothing Worsens With: Nothing Treatments Prior to Arrival: None - Related Data Allergies Allergy/AdvReac Type Severity Reaction Status Date / Time fluoxetine HCl [From Prozac] AdvReac Severe aggressive Verified 08/05/19 19:40 behavior spironolactone AdvReac Severe hallucinations, Verified 08/05/19 19:40 cough, very low blood pressure amlodipine besylate AdvReac Intermediate patient Verified 08/05/19 19:40 [From Norvasc] does not recall hydrochlorothiazide AdvReac Intermediate did not Verified 08/05/19 19:40 help lower blood pressure and increased tremors metoprolol tartrate AdvReac Intermediate blood Verified 08/05/19 19:40 [From Lopressor] pressure bottomed out oxcarbazepine AdvReac Intermediate lifting Verified 08/05/19 19:40 [From Trileptal] head made her dizzy paroxetine HCl [From Paxil] AdvReac Intermediate anger and Verified 08/05/19 19:40 aggression bupropion [From Wellbutrin] AdvReac gain water Verified 08/05/19 19:40 weight diphenhydramine AdvReac BEHAVIORAL Verified 08/05/19 19:40 [From Benadryl] CHANGES hydroxyzine [From Vistaril] AdvReac RAPID Verified 08/05/19 19:40 HEART RATE quetiapine [From Seroquel] AdvReac psychosis Verified 08/05/19 20:02 Travel Screening - Travel/Exposure Within Last 30 Days Have you traveled within the last 30 days?: No - Travel/Exposure Within Last Year Have you traveled outside the [place] in the last year?: No - Additonal Travel Details Have you been exposed to anyone with a communicable illness?: No - Travel Symptoms Symptom Screening: None Review of Systems Constitutional: Denies: Chills Eyes: Denies: Eye discharge ENT: Denies: Congestion Respiratory: Denies: Cough, Dyspnea Cardiovascular: Reports: Chest pain. Denies: Dyspnea on exertion Endocrine: Denies: Fatigue Gastrointestinal: Denies: Nausea Genitourinary: Denies: Dysuria Musculoskeletal: Denies: Arthralgia Skin: Denies: Bruising Past Medical History - SOCIAL HISTORY Smoking Status: Light tobacco smoker (<10/day) Alcohol Use: None Drug Use: None - RESPIRATORY Hx Respiratory Disorders: Yes Hx Pulmonary Embolism: Yes (2002) - CARDIOVASCULAR Hx Cardio Disorders: Yes Hx Deep Vein Thrombosis: Yes (2002) Hx Hypertension: Yes Comment:: PE 2002 - NEURO Hx Neuro Disorders: Yes Hx Headaches: Yes - GI Hx GI Disorders: Yes Hx Diverticulitis: Yes - Hx Genitourinary Disorders: Yes Hx Kidney Stones: Yes Hx UTI: Yes (" kidney infection") - ENDOCRINE Hx Endocrine Disorders: No - MUSCULOSKELETAL Hx Musculoskeletal Disorders: Yes Hx Arthritis: Yes - PSYCH Hx Psych Problems: Yes Hx Anxiety: Yes Hx Depression: Yes Comment:: ADHD, bipolar manic - HEMATOLOGY/ONCOLOGY Hx Hematology/Oncology Disorders: Yes Hx Clotting Problems: Yes (hx of blood clots in L leg) Family Medical History Any Significant Family History?: No Hx Cancer: Father, Mother, Grandparents Hx Diabetes: Father, Mother, Grandparents Hx HTN: Father, Mother, Grandparents Physical Exam - General General Appearance: Alert, Oriented x3, Cooperative, No acute distress (The patient appears very calm and comfortable and nontoxic at this time.) - Head Head exam: Atraumatic, Normocephalic - Eye Eye exam: Normal appearance, PERRL - ENT Throat exam: Normal inspection. negative: Tonsillar erythema, Tonsillar exudate - Neck Neck exam: Normal inspection, Full ROM. negative: Tenderness - Respiratory Respiratory exam: Normal lung sounds bilaterally, Chest wall tenderness (The retrosternal CP is 100% reproducible with palpation of the superior sternum.). negative: Respiratory distress - Cardiovascular Cardiovascular Exam: Regular rate, Normal rhythm, Normal heart sounds - GI/Abdominal GI/Abdominal exam: Soft, Normal bowel sounds. negative: Tenderness - Extremities Extremities exam: Normal inspection, Full ROM, Normal capillary refill. negative: Calf tenderness, Pedal edema, Tenderness Image of Full Body: 1 - Area of CP and reproducible tenderness. - Neurological Neurological exam: Alert. negative: Motor sensory deficit Course Vital Signs 08/05/19 19:51 Temperature 98.4 F Pulse Rate [ 85 Left] Respiratory 20 Rate Blood Pressure 134/116 [Left Arm] Pulse Ox 98 - Reevaluation(s) Reevaluation #1: The patient is doing a lot better at this time and is resting comfortably. She states the pain continues to come and go but is much better. On exam the pain is still 100% reproducible to palpation. I did discuss the etiology of the pain with the patient and did discuss the fact that it is very unlikely there is any cardiac or pulmonary issues causing the pain. Due to the fact the patient had an abnormal stress test 3 months ago and does have multiple cardiac risk factors I did recommend hospital transfer for a Cardiology evaluation and further testing. I did explain to the patient that even though her workup is neg including cardiac enzymes, EKG, and D-dimer there is still a very small chance the problem could be her heart. I also explained the risks of leaving are that she could go home and have an KS, stroke, become disabled and even . The patient presently has proper decision making capacity and understands fully the risks of leaving and accepts the risks. She also understands we cannot be held liable for NOT admitting her to the hospital or transferring her for a Cardiology eval. She would like to F/U with Dr. De Jesus in the [facility] and will return to the ER for any worsening issues. 08/05/19 21:06 Medical Decision Making - Data Complexity MDM Data: Labs Ordered and/or Reviewed, X-Ray Ordered and/or Reviewed, EKG Ordered and/or Reviewed - Lab Data Result diagrams: 08/05/19 19:45 08/05/19 19:45 - EKG Data -: EKG Interpreted by Me EKG: No Acute Changes, Unchanged From Previous - Radiology Data Radiology results: Report reviewed (CXR: Neg for definite acute changes.) Disposition Disposition: Discharge Clinical Impression: Acute chest wall pain Disposition: Home, Self-Care Condition: (2) Stable Instructions: Chest Pain (ED) Additional Instructions: Please continue your regular medicines and please start your home Prilosec. Please see your Philosophy Lecturer in the [facility] next week and also see Dr. Bertrand for an EGD. Please return to the ER for any worsening pain, trouble breathing sweating or nausea. Forms: Patient Portal Access Time of Disposition: 21:06 Quality - Quality Measures Quality Measures: N/A - Blood Pressure Screening View Details: Yes Does Patient Have Any of the Following: Active Dx of HTN Blood Pressure Classification: Normal BP Reading Systolic Measurement: 117 Diastolic Measurement: 72 Screening for High Blood Pressure: Patient Exclusion, Hx of HTN [G9744]
[2019-08-05 20:02] LABS: ABSOLUTE NEUTROPHIL COUNT 7.28; BASO % 0.3 % (0-6); EOS % 5.5 % (0-6); GRAN % 58.2 % (47-80); LYMPH % 29.5 % (16-45); MEAN CORPUSCULAR HEMOGLOBIN 28.1 pg (27-33); MEAN CORPUSCULAR HGB CONC 31.6 g/dl (32-36); MONO % 6.5 % (0-9); PLATELET COUNT 348 K/uL (130-400); RED BLOOD COUNT 4.27 M/uL (3.80-5.40); WHITE BLOOD COUNT W/O DIFF 12.5 K/uL (4.2-12.2)
[2019-08-05 20:15] LABS: BILIRUBIN,TOTAL < 0.20 mg/dL (0.2-1.0); BLOOD UREA NITROGEN 9 mg/dL (6-20); CREATININE 0.8 mg/dL (0.5-0.9); EST GLOMERULAR FILTRATION RATE > 60 mL/min; INR 0.9; PARTIAL THROMBOPLASTIN TIME 24.3 SECONDS (24.5-39.1); PROTHROMBIN TIME (PATIENT) 9.7 SECONDS (9.5-12.1)
[2019-08-05 20:16] LABS: TOTAL PROTEIN 6.6 g/dL (6.6-8.7)
[2019-08-05 20:18] LABS: GLUCOSE,RANDOM 134 mg/dL (74-109)
[2019-08-05 20:20] LABS: ALB/GLOB RATIO 1.8 (1.1-1.8); ALBUMIN 4.2 g/dL (4.0-5.0); ALT/SGPT 10 U/L (<33); AST/SGOT 12 U/L (10.0-35.0)
[2019-08-05 20:21] LABS: ALKALINE PHOSPHATASE 68 U/L (35-104)
[2019-08-05] MEDS ORDERED: KETOROLAC 30 MG/ML VIAL IVP ONE (20:26)
[2019-08-05] MEDS ORDERED: MAGNESIUM HYDROXIDE/AL HYDROX 30 ML, LIDOCAINE VISC 2% 15ML 15 ML PO ONE ×2 (20:28)
--- NOTE | 2019-08-05 20:33 | RADIOLOGY REPORT ---
EXAMINATION: Two View Chest Radiographs EXAM DATE: 08/05/2019 8:21 PM TECHNIQUE: Frontal and lateral views INDICATION: CP COMPARISON: May 16, 2019 ENCOUNTER: Not applicable FINDINGS: The heart, mediastinum, and pulmonary vasculature are stable. Atelectasis or early infiltrate at the left lung base laterally no pneumothorax or pleural effusion IMPRESSION: Suspect atelectasis or early infiltrate within the lingula Dictated by: Ashwin Youssef MD on 08/05/2019 8:30 PM. .
== END 2019-08-05 21:19 | disposition home or self-care (01) ==
LOC: ER 19:30
DX: R07.89 Other chest pain (principal); I10 Essential (primary) hypertension; F17.210 Nicotine dependence, cigarettes, uncomplicated; Z86.718 Personal history of other venous thrombosis and embolism
CPT/HCPCS: 93005; 99284; 96365; 96375; 99285; 85025; 85730; 85610; 80053; 84484; 85379; 71046; 93010; J1885